=== PATIENT | male | born 1945 | race Caucasian/White ===

== ENCOUNTER 2016-07-15 00:03 | Inpatient (IN) | payer MEDICARE, OTHER ==
[~2016-07-15 00:03] MED LIST: Lidocaine 1% 20 ML MDV ONE
[2016-07-15] MEDS ORDERED: Lidocaine 1% with EPINEPHrine 1:100,000 20 ML MDV INJECT ONE ×2 (00:05→00:42)
[2016-07-15] MEDS ORDERED: Lidocaine 1% 20 ML MDV INJECT ONE (00:08)
[2016-07-15] MEDS ORDERED: Morphine 10 MG/ML Syringe ONE (00:38)
[2016-07-15] MEDS ORDERED: Lidocaine 1% with EPINEPHrine 1:100,000 20 ML MDV ONE (00:39)
[2016-07-15] MEDS ORDERED: Ondansetron 4 MG/2 ML SDV ONE (00:39)
[2016-07-15] MEDS ORDERED: Morphine 10 MG/ML Syringe IVPUSH ONE ×3 (00:40→01:23)
[2016-07-15] MEDS ORDERED: Ondansetron 4 MG/2 ML SDV IVPUSH ONE ×2 (00:43→01:23)
--- NOTE | 2016-07-15 00:47 | EDM.PDOC ---
ED HISTORY OF PRESENT ILLNESS - General Chief Complaint: Respiratory Problem Stated Complaint: . Time Seen by Provider: 07/15/16 00:05 Source of Information: Reports: Patient, EMS, Other (Prehospital records from [facility] nurse practitioner [facility]) - History of Present Illness INITIAL COMMENTS - FREE TEXT/NARRATIVE: HISTORY AND PHYSICAL: History of present illness: [] 71-year-old male with a history of long-term tobacco abuse COPD still smokes 2 L home O2 baseline also with diabetes a pacemaker on LS esophageal cancer and CHF. Patient now transferred to our emergency department because of a left- sided pneumothorax. Patient was at [facility] and the mid-level provider as well as her emergency medicine Dr. stated that chest tube placement or needle thoracostomy was not part of their practice and they were unable to do it because they were not comfortable with the procedure they were apparently not trained for. I was called by this mid-level provider [facility] to accept patient in transfer. Patient needed chest tube placement and as mentioned [facility] stated they had no available staff with the capability to do this prior to transfer. Red she denied tachypnea and tachycardia or hemodynamic instability. His is on 3 L nasal cannula the patient was 92% and his baseline is 2 L and as a cannula. Patient did not have a history of chest pain but he did have shortness of breath earlier today so he went through to the [facility] for evaluation Review of systems: As per history of present illness and below otherwise all systems reviewed and negative. Past medical history: As per history of present illness and as reviewed below otherwise noncontributory. Surgical history: As per history of present illness and as reviewed below otherwise noncontributory. Social history: No reported history of drug or alcohol abuse. Family history: As per history of present illness and as reviewed below otherwise noncontributory. Physical exam: HEENT: Atraumatic, normocephalic, pupils reactive, negative for conjunctival pallor or scleral icterus, mucous membranes moist, throat clear, neck supple, nontender, trachea midline. Lungs: Clear to auscultation on the right side, breath sounds normal on the right decreased on the left, chest nontender. Heart: S1S2, regular, negative for clicks, rubs, or JVD. Abdomen: Soft, nondistended, nontender. Negative for masses or hepatosplenomegaly. Negative for costovertebral tenderness. Pelvis: Stable nontender. Genitourinary: Deferred. Rectal: Deferred. Extremities: Atraumatic, negative for cords or calf pain. Neurovascular unremarkable. Neuro: Awake, alert, oriented. Cranial nerves grossly unremarkable. Cerebellum unremarkable. Motor and sensory unremarkable throughout. Exam nonfocal. Diagnostics: [Repeat chest x-ray on arrival with left-sided pneumothorax.] EKG normal sinus rhythm at 98 normal axis no STEMI Therapeutics: [Chest tube placement by Dr. Sunny Boo surgery trade promotion analyst. See his procedure note.] Impression: [Left pneumothorax, Hypoxia ] Plan: [Patient with pneumonia. X-ray suggests mild tension element but patient not in extremis. He is alert and communicative with no speech and no increased work of breathing. Patient with no symptoms consistent with acute coronary syndrome. Dr. Machado only present in emergency department to perform chest tube in insertion and consult regarding patient's continued admission. His discussed with Dr. Milton Parikh hospitalist trade promotion analyst is aware of history and findings and patient's extensive list of comorbidities. Dr. Parikh agrees with inpatient admission to the ICU to his service and no further workup or treatment indicated at this time Definitive disposition and diagnosis as appropriate pending reevaluation and review of above. 76 minutes critical care - Related Data Allergies/ADRs: Allergies Allergy/AdvReac Type Severity Reaction Status Date / Time No Known Allergies Allergy Verified 07/15/16 00:32 Home Meds: Home Meds Albuterol Sulfate 2.5 mg IH QID 07/15/16 [History] Apixaban [Eliquis] 2.5 mg PO Q12HR 07/15/16 [History] Carvedilol [Coreg] 12.5 mg PO BID 07/15/16 [History] Cefdinir [Omnicef] 300 mg PO BID 07/15/16 [History] Fluticasone/Salmeterol [Advair 250-50 Diskus] 1 each IH BID 07/15/16 [History] Megestrol Acetate [Megace] 400 mg PO DAILY 07/15/16 [History] Tiotropium [Spiriva HandiHaler] 18 mcg INH ONETIME 07/15/16 [History] Past Medical History HEENT History: Reports: Other (see below) Other HEENT History: hx of malignant neoplasm of esophagus, remission Cardiovascular History: Reports: Automatic implantable cardioverter defibrillators, CAD, Cardiomyopathy, Heart Failure, High cholesterol, Hypertension, Other (see below) Other Cardiovascular History: Anticoagulant therapy; diastolic dysfunction Respiratory History: Reports: COPD Other Respiratory History: hx pneumonia; respiratory failure; bronchiectasis with acute exacerbation Endocrine/Metabolic History: Reports: Diabetes, type II Hematologic History: Reports: Anticoagulation therapy Oncologic (Cancer) History: Reports: Esophageal - Past Surgical History Cardiovascular Surgical History: Reports: Other (see below) Other Cardiovascular Surgeries/Procedures: cardiac catheterization Social & Family History - Tobacco Use Smoking Status *Q: Former Smoker Used Tobacco, but Quit: Yes Month Tobacco Last Used: uknown - Recreational Drug Use Recreational Drug Use: No ED ROS GENERAL - Review of Systems Review Of Systems: See Below (History of present illness) ED EXAM, GENERAL - Physical Exam Exam: See Below (History of present illness) Course - Vital Signs Last Recorded V/S: Last Vital Signs Temp 36.8 C 07/15/16 04:00 Pulse 84 07/15/16 02:13 Resp 31 H 07/15/16 04:00 BP 139/77 07/15/16 04:00 Pulse Ox 100 07/15/16 04:00 - Orders/Labs/Meds Orders: Active Orders 24 hr Category Date Time Status Admission Status [Patient Status] [ADT] Stat ADT 07/15/16 00:42 Active Chest 1V Frontal [CR] Stat Exams 07/15/16 00:10 Taken Chest 1V Frontal [CR] Stat Exams 07/15/16 01:03 Ordered Labs: Laboratory Tests 07/15/16 07/15/16 07/15/16 Range/Units 00:09 00:17 00:30 WBC (4.0-11.0) K/uL RBC (4.50-5.90) M/uL Hgb (13.0-17.0) g/dL Hct (38.0-50.0) % MCV (80.0-98.0) fL MCH (27.0-32.0) pg MCHC (31.0-37.0) g/dL RDW Std Deviation (28.0-62.0) fl RDW Coeff of Saran (11.0-15.0) % Plt Count (150-400) K/uL MPV (7.40-12.00) fL Neut % (Auto) (48.0-80.0) % Lymph % (Auto) (16.0-40.0) % [place] % (Auto) (0.0-15.0) % Eos % (Auto) (0.0-7.0) % Baso % (Auto) (0.0-1.5) % Neut # (Auto) (1.4-5.7) K/uL Lymph # (Auto) (0.6-2.4) K/uL [place] # (Auto) (0.0-0.8) K/uL Eos # (Auto) (0.0-0.7) K/uL Baso # (Auto) (0.0-0.1) K/uL Sodium (136-146) mmol/L Potassium (3.5-5.1) mmol/L Chloride (98-110) mmol/L Carbon Dioxide (21-31) mmol/L BUN (6.0-23.0) mg/dL Creatinine (0.6-1.5) mg/dL Est Cr Clr Drug Dosing mL/min Estimated GFR (MDRD) ml/min Glucose (60-110) mg/dL POC Glucose 137 H (60-110) mg/dL Calcium (8.8-10.8) mg/dL Total Bilirubin (0.1-1.5) mg/dL AST (5-40) IU/L ALT (8-54) IU/L Alkaline Phosphatase (40-150) Troponin I < 0.10 (0.0-0.29) NG/ML Total Protein (6.0-8.0) g/dL Albumin (3.4-4.8) g/dL Globulin (2.0-3.5) g/dL Albumin/Globulin Ratio (1.3-2.8) Blood Type O POSITIVE Antibody Screen NEGATIVE 07/15/16 07/15/16 Range/Units 00:30 00:30 WBC 7.61 (4.0-11.0) K/uL RBC 4.69 (4.50-5.90) M/uL Hgb 13.1 (13.0-17.0) g/dL Hct 41.5 (38.0-50.0) % MCV 88.5 (80.0-98.0) fL MCH 27.9 (27.0-32.0) pg MCHC 31.6 (31.0-37.0) g/dL RDW Std Deviation 50.2 (28.0-62.0) fl RDW Coeff of Saran 16 H (11.0-15.0) % Plt Count 180 (150-400) K/uL MPV 9.40 (7.40-12.00) fL Neut % (Auto) 86.7 H (48.0-80.0) % Lymph % (Auto) 10.9 L (16.0-40.0) % [place] % (Auto) 1.7 (0.0-15.0) % Eos % (Auto) 0.4 (0.0-7.0) % Baso % (Auto) 0.3 (0.0-1.5) % Neut # (Auto) 6.6 H (1.4-5.7) K/uL Lymph # (Auto) 0.8 (0.6-2.4) K/uL [place] # (Auto) 0.1 (0.0-0.8) K/uL Eos # (Auto) 0.0 (0.0-0.7) K/uL Baso # (Auto) 0.0 (0.0-0.1) K/uL Sodium 142 (136-146) mmol/L Potassium 5.5 H (3.5-5.1) mmol/L Chloride 103 (98-110) mmol/L Carbon Dioxide 31 (21-31) mmol/L BUN 18 (6.0-23.0) mg/dL Creatinine 1.0 (0.6-1.5) mg/dL Est Cr Clr Drug Dosing 52.04 mL/min Estimated GFR (MDRD) > 60.0 ml/min Glucose 144 H (60-110) mg/dL POC Glucose (60-110) mg/dL Calcium 9.0 (8.8-10.8) mg/dL Total Bilirubin 0.4 (0.1-1.5) mg/dL AST 14 (5-40) IU/L ALT 9 (8-54) IU/L Alkaline Phosphatase 37 L (40-150) Troponin I (0.0-0.29) NG/ML Total Protein 7.3 (6.0-8.0) g/dL Albumin 3.9 (3.4-4.8) g/dL Globulin 3.4 (2.0-3.5) g/dL Albumin/Globulin Ratio 1.2 L (1.3-2.8) Blood Type Antibody Screen Meds: Medications Discontinued Medications Generic Name Dose Route Start Last Admin Trade Name Francisco PRN Reason Stop Dose Admin Lidocaine HCl Confirm 07/14/16 23:46 07/15/16 01:30 Xylocaine 1% Administered 07/15/16 00:08 Not Given Dose 20 ml .ROUTE .STK-MED ONE Lidocaine HCl 20 ml 07/15/16 00:08 07/15/16 01:32 Xylocaine 1% INJECT 07/15/16 00:09 Not Given ONETIME ONE Lidocaine/Epinephrine Confirm 07/15/16 00:39 07/15/16 01:32 Xylocaine 1% With Epinephrine 1:100,000 Administered 07/15/16 00:40 Not Given Dose 20 ml .ROUTE .STK-MED ONE Lidocaine/Epinephrine 20 ml 07/15/16 00:42 07/15/16 01:32 Xylocaine 1% With Epinephrine 1:100,000 INJECT 07/15/16 00:43 Not Given ONETIME ONE Lidocaine/Epinephrine 20 ml 07/15/16 00:05 07/15/16 00:47 Xylocaine 1% With Epinephrine 1:100,000 INJECT 07/15/16 00:06 20 ml ONETIME ONE Administration Morphine Sulfate Confirm 07/15/16 00:38 07/15/16 01:31 Morphine Administered 07/15/16 00:39 Not Given Dose 10 mg .ROUTE .STK-MED ONE Morphine Sulfate 10 mg 07/15/16 00:43 07/15/16 01:32 Morphine IVPUSH 07/15/16 00:44 Not Given ONETIME ONE Morphine Sulfate 3 mg 07/15/16 01:23 07/15/16 01:31 Morphine IVPUSH 07/15/16 01:24 Not Given ONETIME ONE Morphine Sulfate 3 mg 07/15/16 00:40 07/15/16 00:47 Morphine IVPUSH 07/15/16 00:41 3 mg ONETIME ONE Administration Ondansetron HCl Confirm 07/15/16 00:39 07/15/16 01:33 Zofran Administered 07/15/16 00:40 Not Given Dose 4 mg .ROUTE .STK-MED ONE Ondansetron HCl 4 mg 07/15/16 00:43 07/15/16 00:40 Zofran IVPUSH 07/15/16 00:44 4 mg ONETIME ONE Administration Ondansetron HCl 4 mg 07/15/16 01:23 07/15/16 01:32 Zofran IVPUSH 07/15/16 01:24 Not Given ONETIME ONE Departure - Departure Time of Disposition: 00:46 Disposition: Admitted As Inpatient 66 Condition: fair Clinical Impression: Pneumothorax, left, Hypoxia, S/P chest tube placement - My Orders Last 24 Hours: My Active Orders 07/15/16 00:10 Chest 1V Frontal [CR] Stat 07/15/16 00:42 Admission Status [Patient Status] [ADT] Stat 07/15/16 01:03 Chest 1V Frontal [CR] Stat - Assessment/Plan Last 24 Hours: My Active Orders 07/15/16 00:10 Chest 1V Frontal [CR] Stat 07/15/16 00:42 Admission Status [Patient Status] [ADT] Stat 07/15/16 01:03 Chest 1V Frontal [CR] Stat
[2016-07-15 01:18] LABS: CHLORIDE,CL 103 mmol/L (98-110); SODIUM,NA 142 mmol/L (136-146)
--- NOTE | 2016-07-15 01:30 | PCM.SN ---
- Free Text/Narrative Note: consult note dictated; procedure note dictated; 24FR chest tube placed in L; postop cxr, lung is completely up, no air leak; pt will get a 1v cxr qam; will follow pt with you; hold blood thinner X 36 hr.; never clamp chest tube under any conditions
--- NOTE | 2016-07-15 03:52 | OR ---
SURGEON: Sunny Boo MD DATE OF PROCEDURE: 07/15/2016 PREOPERATIVE DIAGNOSIS: Tension left pneumothorax. POSTOPERATIVE DIAGNOSIS: Tension left pneumothorax. PROCEDURE PERFORMED: Chest tube placement. PROCEDURE IN DETAIL: Risks and benefits were discussed with the patient. Time-out was being called. The patient's family consented for the procedure and procedure then started. Procedure was done in the emergency room [facility] [place]. The left chest was prepped and draped in a sterile fashion and 3 mg of IV morphine was given to the patient. The patient was placed under continuous monitoring and after assessment of appropriate landmark, a space on the fourth intercostal space in the mid axilla line was used and local anesthetic infiltrated with a skin incision right on top of the rib. Using a hemostat, the pleural cavity was inserted. Using surgeon's finger to dislodge any adherence, a 24-[place] chest tube was inserted and had a big gush of air cs tension pneumothorax and the chest tube was anchored to the skin marker pen and chest x-ray was pending. The patient tolerated the procedure well. Dr. Boo was present throughout the whole procedure. Chest x-ray was performed and there was no air leak. MARGARITO / BELINDA /[id number] MTDGarima
--- NOTE | 2016-07-15 03:58 | PCM.HP ---
H&P History of Present Illness - History of Present Illness Initial Comments - Free Text/Narative: 71 yo male with pmh of CHF, and COPD who has had mulltiple admissions in [facility] recently for pneumonia. He takes Elaquis but is uncertain of the reason for anticoagulation. He presented to [facility] ER with complaints of shortness of breath and low O2 sats on his home meter. He was discovered to have a pneumonthorax for which he was transfered to [facility]. Dr. Boo was consulted here and placed a chest tube. - Related Data Allergies/Adverse Reactions: Allergies Allergy/AdvReac Type Severity Reaction Status Date / Time No Known Allergies Allergy Verified 07/15/16 00:32 Home Medications: Home Meds Albuterol Sulfate 2.5 mg IH QID 07/15/16 [History] Apixaban [Eliquis] 2.5 mg PO Q12HR 07/15/16 [History] Carvedilol [Coreg] 12.5 mg PO BID 07/15/16 [History] Cefdinir [Omnicef] 300 mg PO BID 07/15/16 [History] Fluticasone/Salmeterol [Advair 250-50 Diskus] 1 each IH BID 07/15/16 [History] Megestrol Acetate [Megace] 400 mg PO DAILY 07/15/16 [History] Sotalol HCl [Sotalol] 1 tab PO BID 07/15/16 [History] Tiotropium [Spiriva HandiHaler] 18 mcg INH ONETIME 07/15/16 [History] Past Medical History HEENT History: Reports: Other (see below) Other HEENT History: hx of malignant neoplasm of esophagus, remission Cardiovascular History: Reports: Automatic implantable cardioverter defibrillators, CAD, Cardiomyopathy, Heart Failure, High cholesterol, Hypertension, Other (see below) Other Cardiovascular History: Anticoagulant therapy; diastolic dysfunction Respiratory History: Reports: COPD Other Respiratory History: hx pneumonia; respiratory failure; bronchiectasis with acute exacerbation Endocrine/Metabolic History: Reports: Diabetes, type II Hematologic History: Reports: Anticoagulation therapy Oncologic (Cancer) History: Reports: Esophageal - Past Surgical History Cardiovascular Surgical History: Reports: Other (see below) Other Cardiovascular Surgeries/Procedures: cardiac catheterization Social & Family History - Tobacco Use Smoking Status *Q: Former Smoker Used Tobacco, but Quit: Yes Month Tobacco Last Used: uknown - Recreational Drug Use Recreational Drug Use: No H&P Review of Systems - Review of Systems: Review Of Systems: See Below General: Reports: no symptoms HEENT: Reports: no symptoms Pulmonary: Reports: No Symptoms Cardiovascular: Reports: no symptoms Gastrointestinal: Reports: No symptoms Genitourinary: Reports: no symptoms Musculoskeletal: Reports: no symptoms Skin: Reports: no symptoms Psychiatric: Reports: no symptoms Neurological: Reports: No Symptoms Hematologic/Lymphatic: Reports: no symptoms Immunologic: Reports: no symptoms Exam - Exam Exam: See Below - Vital Signs Vital Signs: Last Vital Signs Temp 36.4 C 07/15/16 02:13 Pulse 84 07/15/16 02:13 Resp 22 H 07/15/16 02:13 BP 140/90 07/15/16 02:13 Pulse Ox 99 07/15/16 02:13 Weight: 49.2 kg - Exam General: cooperative. No: mild distress Neck: supple, trachea midline. No: JVD Lungs: Clear to auscultation, Normal respiratory effort Cardiovascular: regular rate, regular rhythm Abdomen: Normal Bowel Sounds, Soft Extremities: normal inspection. No: edema Skin: warm, dry, intact - Patient Data Result Diagrams: 07/16/16 04:55 07/16/16 04:55 *Q Meaningful Use (ADM) - VTE *Q VTE Criteria *Q: - Stroke *Q Stroke Criteria *Q: - AMI *Q AMI Criteria *Q: Problem List Initiated/Reviewed/Updated: Yes Orders Last 24hrs: Active Orders 24 hr Category Date Time Status Chest Tube Management [RC] Q12H Care 07/15/16 01:27 Active CXR [Chest 1V Frontal] [CR] AM Exams 07/15/16 05:11 Ordered CXR [Chest 1V Frontal] [CR] AM Exams 07/16/16 05:11 Ordered CXR [Chest 1V Frontal] [CR] AM Exams 07/17/16 05:11 Ordered CXR [Chest 1V Frontal] [CR] AM Exams 07/18/16 05:11 Ordered Assessment/Plan Comment:: 71 yo male admitted with pneumothorax. Dr. Boo has placed chest tube. Will repeat CXR in am.
[2016-07-15] MEDS ORDERED: Morphine 2 MG/ML Syringe IVPUSH PRN (06:02)
[2016-07-15 06:08] LABS: CHLORIDE,CL 101 mmol/L (98-110); SODIUM,NA 143 mmol/L (136-146)
[2016-07-15] MEDS ORDERED: 50% Dextrose in Water 50 ML Syringe IVPUSH STA (06:16)
[2016-07-15] MEDS ORDERED: Insulin Regular, Human 100 Units/ML 10 ML Vial IVPUSH STA (06:17)
--- NOTE | 2016-07-15 06:19 | CONS ---
DATE OF CONSULTATION: 07/15/2016 DATE OF : 1945 PRIMARY CARE PHYSICIAN: None PCP REASON FOR CONSULTATION: Consult for left side pneumothorax with tension component. CONSULTANTS: Dr. Diaz Dominguez. HISTORY OF PRESENT ILLNESS: The patient is a 71-year-old gentleman with esophageal cancer, possibly metastatic to the lung and has congestive heart failure with BNP of 3300 and on Eliquis and 81 mg aspirin, noted to have increasing difficulty in breathing and dyspnea on exertion and seen in outside hospital and workup includes a chest x- ray that shows moderate pneumothorax per Radiology on the left side. The patient is transferred to our emergency room for further management. When the patient came over here, the patient hardly able to carry on a sentence without taking a break and the patient remarked that the breathing is much more difficult today compared to yesterday 36 hours ago, but is getting here and denied syncope, denied chest pain. Of note, the patient has continued to be a current everyday smoker. PAST MEDICAL HISTORY: Denied diabetes, SD, or CVA. The patient has hypertension. PAST SURGICAL HISTORY: Central line placement to the right for chemotherapy and defibrillator on the left. ALLERGY: Please refer to nursing for details. MEDICATION: Please refer to nursing for details. Of note, the patient is on Eliquis and ASA 81 mg. REVIEW OF SYSTEMS: Same as history of present illness. FAMILY HISTORY: Noncontributory. PHYSICAL EXAMINATION: GENERAL: A very anxious, skin on bone, cachectic appearance, elderly, in moderate distress. HEENT: Normocephalic, atraumatic. Sclerae anicteric. LUNGS: Clear on the right side and muffled and diminished on the left side. Trachea is in the midline. There is no crepitus. ABDOMEN: Soft. DIAGNOSTICS: Chest x-ray shows moderate-sized left-sided pneumothorax with trachea deviation, Radiology read as a mild component of tension pneumothorax. The patient got another chest x-ray when he came here, the trachea deviation is much more pronounced and at the same time, the patient can hardly carry on a sentence without taking a breath. IMPRESSION: Likely tension pneumothorax requiring immediate placement of chest tube on the left side. Risks and benefits discussed with the patient in situation like this, Eliquis and aspirin 81 mg and with the patient's other comorbidity, congestive heart failure, the patient probably would benefit having a pigtail placed by the Radiology and, however, right now it is 1:15 in the morning. Doubt any Radiology is available. The patient's risks and benefits discussed with the family member regarding placement of chest tube, bleeding, infection, and because the patient on a lot of anticoagulation if the complication involved along, the patient may result in and the patient's family understands that and agree and proceeded with plan. MARGARITO / BELINDA /[id number] Cc: KIRK Lora
[2016-07-15] MEDS: Insulin Aspart 100 Units/ML 3 ML Pen SUBCUT SCH ×3 (06:43→17:31)
[2016-07-15] MEDS ORDERED: Sotalol 80 MG Tab PO ONE ×2 (09:00→21:00)
[2016-07-15 09:11] LABS: CHLORIDE,CL 103 mmol/L (98-110); SODIUM,NA 144 mmol/L (136-146)
[2016-07-15] MEDS: Sotalol 80 MG Tab PO SCH ×2 (09:20→20:25)
[2016-07-15] MEDS: Carvedilol 12.5 MG Tab PO SCH ×2 (09:20→20:23)
--- NOTE | 2016-07-15 09:47 | CR ---
EXAMINATION: Portable chest radiograph. HISTORY: Left pneumothorax. FINDINGS: The trachea is midline. The heart is normal in size. Chronic interstitial changes are noted bilatera lly. The previously demonstrated left-sided pneumothorax is not appreciated with a left-sided chest tube noted. Tubular shaped opacities are noted within the lung bases bilaterally. There is a left-si ded AICD. There is a right-sided Foeadq-l-Misp. Osseous structures appear unremarkable. IMPRESSION: 1. No residual left-sided pneumothorax with a chest tube in place. 2. Tubular opacities within the lung bases bilaterally, correlate clinically for a ABPA.
--- NOTE | 2016-07-15 14:26 | PCM.PN ---
- General Info Date of Service: 07/15/16 Subjective Update: Patient doing much better today. CXR was done which shows chest tube is in place. Vitals are stable. No shortness of breath, pleurisy or chest pain. Tolerating PO intake and producing urine. Functional Status: Reports: pain controlled, tolerating diet - Review of Systems General: Reports: Weakness HEENT: Reports: no symptoms Pulmonary: Reports: no symptoms. Denies: shortness of breath, pleuritic chest pain Cardiovascular: Reports: No Symptoms. Denies: Chest Pain, Palpitations Gastrointestinal: Reports: No symptoms Genitourinary: Reports: no symptoms Musculoskeletal: Reports: no symptoms Skin: Reports: no symptoms Neurological: Reports: No Symptoms Psychiatric: Reports: no symptoms - Patient Data Vitals - most recent: Last Vital Signs Temp 36.8 C 07/15/16 04:00 Pulse 72 07/15/16 09:20 Resp 27 H 07/15/16 11:00 BP 114/63 07/15/16 11:00 Pulse Ox 98 07/15/16 11:00 Weight - most recent: 49.2 kg I&O - last 24 hours: Intake & Output 07/14/16 07/15/16 07/15/16 22:59 06:59 14:59 Intake Total 0 Output Total 150 Balance -150 Lab Results last 24 hrs: Laboratory Results - last 24 hr 07/15/16 07/15/16 07/15/16 Range/Units 05:30 05:30 06:25 WBC 6.61 (4.0-11.0) K/uL RBC 4.67 (4.50-5.90) M/uL Hgb 12.7 L (13.0-17.0) g/dL Hct 41.4 (38.0-50.0) % MCV 88.7 (80.0-98.0) fL MCH 27.2 (27.0-32.0) pg MCHC 30.7 L (31.0-37.0) g/dL RDW Std Deviation 51.2 (28.0-62.0) fl RDW Coeff of Saran 16 H (11.0-15.0) % Plt Count 177 (150-400) K/uL MPV 9.50 (7.40-12.00) fL Neut % (Auto) 88.1 H (48.0-80.0) % Lymph % (Auto) 9.1 L (16.0-40.0) % [place] % (Auto) 2.6 (0.0-15.0) % Eos % (Auto) 0.0 (0.0-7.0) % Baso % (Auto) 0.2 (0.0-1.5) % Neut # (Auto) 5.8 H (1.4-5.7) K/uL Lymph # (Auto) 0.6 (0.6-2.4) K/uL [place] # (Auto) 0.2 (0.0-0.8) K/uL Eos # (Auto) 0.0 (0.0-0.7) K/uL Baso # (Auto) 0.0 (0.0-0.1) K/uL Nucleated RBC % 0.0 /100WBC Nucleated RBCs # 0 K/uL Sodium 143 (136-146) mmol/L Potassium 5.5 H (3.5-5.1) mmol/L Chloride 101 (98-110) mmol/L Carbon Dioxide 33 H (21-31) mmol/L BUN 21 (6.0-23.0) mg/dL Creatinine 1.0 (0.6-1.5) mg/dL Est Cr Clr Drug Dosing 47.15 mL/min Estimated GFR (MDRD) > 60.0 ml/min Glucose 149 H (60-110) mg/dL POC Glucose 142 H (60-110) mg/dL Calcium 9.2 (8.8-10.8) mg/dL Troponin I (0.0-0.29) NG/ML 07/15/16 07/15/16 Range/Units 08:35 08:35 WBC (4.0-11.0) K/uL RBC (4.50-5.90) M/uL Hgb (13.0-17.0) g/dL Hct (38.0-50.0) % MCV (80.0-98.0) fL MCH (27.0-32.0) pg MCHC (31.0-37.0) g/dL RDW Std Deviation (28.0-62.0) fl RDW Coeff of [place] (11.0-15.0) % Plt Count (150-400) K/uL MPV (7.40-12.00) fL Neut % (Auto) (48.0-80.0) % Lymph % (Auto) (16.0-40.0) % [place] % (Auto) (0.0-15.0) % Eos % (Auto) (0.0-7.0) % Baso % (Auto) (0.0-1.5) % Neut # (Auto) (1.4-5.7) K/uL Lymph # (Auto) (0.6-2.4) K/uL [place] # (Auto) (0.0-0.8) K/uL Eos # (Auto) (0.0-0.7) K/uL Baso # (Auto) (0.0-0.1) K/uL Nucleated RBC % /100WBC Nucleated RBCs # K/uL Sodium 144 (136-146) mmol/L Potassium 5.1 (3.5-5.1) mmol/L Chloride 103 (98-110) mmol/L Carbon Dioxide 32 H (21-31) mmol/L BUN 23 (6.0-23.0) mg/dL Creatinine 1.1 (0.6-1.5) mg/dL Est Cr Clr Drug Dosing 42.86 mL/min Estimated GFR (MDRD) > 60.0 ml/min Glucose 182 H (60-110) mg/dL POC Glucose (60-110) mg/dL Calcium 9.0 (8.8-10.8) mg/dL Troponin I < 0.10 (0.0-0.29) NG/ML Med Orders - Current: Current Medications Carvedilol (Coreg) 12.5 mg PO BID [facility] Last Admin: 07/15/16 09:20 Dose: 12.5 mg Insulin Aspart (Novolog) 0 unit SUBCUT TIDAC [facility] PRN Reason: Protocol Last Admin: 07/15/16 13:42 Dose: Not Given Morphine Sulfate (Morphine) 2 mg IVPUSH Q2H PRN PRN Reason: Pain (severe 7-10) Oxycodone HCl (Oxycodone) 5 mg PO Q4H PRN PRN Reason: Pain Sotalol HCl (Betapace) 120 mg PO BID [facility] Last Admin: 07/15/16 09:20 Dose: 120 mg Discontinued Medications Dextrose/Water (Dextrose 50% In Water) 50 ml IVPUSH ONETIME STA Stop: 07/15/16 06:17 Last Admin: 07/15/16 06:35 Dose: 50 ml Insulin Human Regular (Novolin R) 10 unit IVPUSH ONETIME STA PRN Reason: Protocol Stop: 07/15/16 06:18 Last Admin: 07/15/16 06:33 Dose: 10 units Lidocaine HCl (Xylocaine 1%) Confirm Administered Dose 20 ml .ROUTE .STK-MED ONE Stop: 07/15/16 00:08 Last Admin: 07/15/16 01:30 Dose: Not Given Lidocaine HCl (Xylocaine 1%) 20 ml INJECT ONETIME ONE Stop: 07/15/16 00:09 Last Admin: 07/15/16 01:32 Dose: Not Given Lidocaine/Epinephrine (Xylocaine 1% With Epinephrine 1:100,000) Confirm Administered Dose 20 ml .ROUTE .STK-MED ONE Stop: 07/15/16 00:40 Last Admin: 07/15/16 01:32 Dose: Not Given Lidocaine/Epinephrine (Xylocaine 1% With Epinephrine 1:100,000) 20 ml INJECT ONETIME ONE Stop: 07/15/16 00:43 Last Admin: 07/15/16 01:32 Dose: Not Given Lidocaine/Epinephrine (Xylocaine 1% With Epinephrine 1:100,000) 20 ml INJECT ONETIME ONE Stop: 07/15/16 00:06 Last Admin: 07/15/16 00:47 Dose: 20 ml Morphine Sulfate (Morphine) Confirm Administered Dose 10 mg .ROUTE .STK-MED ONE Stop: 07/15/16 00:39 Last Admin: 07/15/16 01:31 Dose: Not Given Morphine Sulfate (Morphine) 10 mg IVPUSH ONETIME ONE Stop: 07/15/16 00:44 Last Admin: 07/15/16 01:32 Dose: Not Given Morphine Sulfate (Morphine) 3 mg IVPUSH ONETIME ONE Stop: 07/15/16 01:24 Last Admin: 07/15/16 01:31 Dose: Not Given Morphine Sulfate (Morphine) 3 mg IVPUSH ONETIME ONE Stop: 07/15/16 00:41 Last Admin: 07/15/16 00:47 Dose: 3 mg Ondansetron HCl (Zofran) Confirm Administered Dose 4 mg .ROUTE .STK-MED ONE Stop: 07/15/16 00:40 Last Admin: 07/15/16 01:33 Dose: Not Given Ondansetron HCl (Zofran) 4 mg IVPUSH ONETIME ONE Stop: 07/15/16 00:44 Last Admin: 07/15/16 00:40 Dose: 4 mg Ondansetron HCl (Zofran) 4 mg IVPUSH ONETIME ONE Stop: 07/15/16 01:24 Last Admin: 07/15/16 01:32 Dose: Not Given - Exam General: alert, oriented, no acute distress Neck: supple, no JVD Lungs: Normal respiratory effort, Decreased breath sounds, Other (good aeration) Cardiovascular: Regular Rate, Regular Rhythm Extremities: no edema Skin: warm, dry, intact Neurological: no new focal deficit - Problem List Review Problem List Initiated/Reviewed/Updated: Yes - My Orders Last 24 Hours: My Active Orders 07/15/16 13:12 Transfer Patient (Change bed) [ADT] Routine 07/15/16 13:13 Telemetry Monitoring [Cardiac Monitoring] [RC] . DIRECTED - Plan Plan:: 71 yo male admitted with Left Tension pneumothorax s/p chest tube. Chest Tube was placed by Dr. Boo from general Surgery. Patient improved significantly today. Breath sounds equal bilaterally, vitals stable, denies sob or chest pain. Repeat CXR was done today which shows chest tube in place. plan: 1. Patient was seen by Dr. Boo today and we will continue management as per his recommendations: -hold Eliquis and Plavix to decrease risk for potential bleeding into thoracic cavity -repeat CXR in AM -continue 20cm suction for at least 2 days -then water seal X 12 hr -then repeat cxr and pull tube if WNL -appreciate the recs 2. as per orders
--- NOTE | 2016-07-15 14:30 | PCM.SURGPN ---
- General Info Date of Service: 07/15/16 Functional Status: Reports: pain controlled - Review of Systems General: Reports: No Symptoms Gastrointestinal: Reports: No symptoms (breathing is much better) - Patient Data Vitals - most recent: Last Vital Signs Temp 98.2 F 07/15/16 04:00 Pulse 72 07/15/16 09:20 Resp 27 H 07/15/16 11:00 BP 114/63 07/15/16 11:00 Pulse Ox 98 07/15/16 11:00 Weight - most recent: 108 lb 7.479 oz I&O - last 24 hours: Intake & Output 07/14/16 07/15/16 07/15/16 22:59 06:59 14:59 Intake Total 0 Output Total 150 Balance -150 Lab Results last 24 hrs: Laboratory Results - last 24 hr 07/15/16 07/15/16 07/15/16 Range/Units 05:30 05:30 06:25 WBC 6.61 (4.0-11.0) K/uL RBC 4.67 (4.50-5.90) M/uL Hgb 12.7 L (13.0-17.0) g/dL Hct 41.4 (38.0-50.0) % MCV 88.7 (80.0-98.0) fL MCH 27.2 (27.0-32.0) pg MCHC 30.7 L (31.0-37.0) g/dL RDW Std Deviation 51.2 (28.0-62.0) fl RDW Coeff of Saran 16 H (11.0-15.0) % Plt Count 177 (150-400) K/uL MPV 9.50 (7.40-12.00) fL Neut % (Auto) 88.1 H (48.0-80.0) % Lymph % (Auto) 9.1 L (16.0-40.0) % [place] % (Auto) 2.6 (0.0-15.0) % Eos % (Auto) 0.0 (0.0-7.0) % Baso % (Auto) 0.2 (0.0-1.5) % Neut # (Auto) 5.8 H (1.4-5.7) K/uL Lymph # (Auto) 0.6 (0.6-2.4) K/uL [place] # (Auto) 0.2 (0.0-0.8) K/uL Eos # (Auto) 0.0 (0.0-0.7) K/uL Baso # (Auto) 0.0 (0.0-0.1) K/uL Nucleated RBC % 0.0 /100WBC Nucleated RBCs # 0 K/uL Sodium 143 (136-146) mmol/L Potassium 5.5 H (3.5-5.1) mmol/L Chloride 101 (98-110) mmol/L Carbon Dioxide 33 H (21-31) mmol/L BUN 21 (6.0-23.0) mg/dL Creatinine 1.0 (0.6-1.5) mg/dL Est Cr Clr Drug Dosing 47.15 mL/min Estimated GFR (MDRD) > 60.0 ml/min Glucose 149 H (60-110) mg/dL POC Glucose 142 H (60-110) mg/dL Calcium 9.2 (8.8-10.8) mg/dL Troponin I (0.0-0.29) NG/ML 07/15/16 07/15/16 Range/Units 08:35 08:35 WBC (4.0-11.0) K/uL RBC (4.50-5.90) M/uL Hgb (13.0-17.0) g/dL Hct (38.0-50.0) % MCV (80.0-98.0) fL MCH (27.0-32.0) pg MCHC (31.0-37.0) g/dL RDW Std Deviation (28.0-62.0) fl RDW Coeff of [place] (11.0-15.0) % Plt Count (150-400) K/uL MPV (7.40-12.00) fL Neut % (Auto) (48.0-80.0) % Lymph % (Auto) (16.0-40.0) % [place] % (Auto) (0.0-15.0) % Eos % (Auto) (0.0-7.0) % Baso % (Auto) (0.0-1.5) % Neut # (Auto) (1.4-5.7) K/uL Lymph # (Auto) (0.6-2.4) K/uL [place] # (Auto) (0.0-0.8) K/uL Eos # (Auto) (0.0-0.7) K/uL Baso # (Auto) (0.0-0.1) K/uL Nucleated RBC % /100WBC Nucleated RBCs # K/uL Sodium 144 (136-146) mmol/L Potassium 5.1 (3.5-5.1) mmol/L Chloride 103 (98-110) mmol/L Carbon Dioxide 32 H (21-31) mmol/L BUN 23 (6.0-23.0) mg/dL Creatinine 1.1 (0.6-1.5) mg/dL Est Cr Clr Drug Dosing 42.86 mL/min Estimated GFR (MDRD) > 60.0 ml/min Glucose 182 H (60-110) mg/dL POC Glucose (60-110) mg/dL Calcium 9.0 (8.8-10.8) mg/dL Troponin I < 0.10 (0.0-0.29) NG/ML Med Orders - Current: Current Medications Carvedilol (Coreg) 12.5 mg PO BID [facility] Last Admin: 07/15/16 09:20 Dose: 12.5 mg Insulin Aspart (Novolog) 0 unit SUBCUT TIDAC [facility] PRN Reason: Protocol Last Admin: 07/15/16 13:42 Dose: Not Given Morphine Sulfate (Morphine) 2 mg IVPUSH Q2H PRN PRN Reason: Pain (severe 7-10) Oxycodone HCl (Oxycodone) 5 mg PO Q4H PRN PRN Reason: Pain Sotalol HCl (Betapace) 120 mg PO BID [facility] Last Admin: 07/15/16 09:20 Dose: 120 mg Discontinued Medications Dextrose/Water (Dextrose 50% In Water) 50 ml IVPUSH ONETIME STA Stop: 07/15/16 06:17 Last Admin: 07/15/16 06:35 Dose: 50 ml Insulin Human Regular (Novolin R) 10 unit IVPUSH ONETIME STA PRN Reason: Protocol Stop: 07/15/16 06:18 Last Admin: 07/15/16 06:33 Dose: 10 units Lidocaine HCl (Xylocaine 1%) Confirm Administered Dose 20 ml .ROUTE .STK-MED ONE Stop: 07/15/16 00:08 Last Admin: 07/15/16 01:30 Dose: Not Given Lidocaine HCl (Xylocaine 1%) 20 ml INJECT ONETIME ONE Stop: 07/15/16 00:09 Last Admin: 07/15/16 01:32 Dose: Not Given Lidocaine/Epinephrine (Xylocaine 1% With Epinephrine 1:100,000) Confirm Administered Dose 20 ml .ROUTE .STK-MED ONE Stop: 07/15/16 00:40 Last Admin: 07/15/16 01:32 Dose: Not Given Lidocaine/Epinephrine (Xylocaine 1% With Epinephrine 1:100,000) 20 ml INJECT ONETIME ONE Stop: 07/15/16 00:43 Last Admin: 07/15/16 01:32 Dose: Not Given Lidocaine/Epinephrine (Xylocaine 1% With Epinephrine 1:100,000) 20 ml INJECT ONETIME ONE Stop: 07/15/16 00:06 Last Admin: 07/15/16 00:47 Dose: 20 ml Morphine Sulfate (Morphine) Confirm Administered Dose 10 mg .ROUTE .STK-MED ONE Stop: 07/15/16 00:39 Last Admin: 07/15/16 01:31 Dose: Not Given Morphine Sulfate (Morphine) 10 mg IVPUSH ONETIME ONE Stop: 07/15/16 00:44 Last Admin: 07/15/16 01:32 Dose: Not Given Morphine Sulfate (Morphine) 3 mg IVPUSH ONETIME ONE Stop: 07/15/16 01:24 Last Admin: 07/15/16 01:31 Dose: Not Given Morphine Sulfate (Morphine) 3 mg IVPUSH ONETIME ONE Stop: 07/15/16 00:41 Last Admin: 07/15/16 00:47 Dose: 3 mg Ondansetron HCl (Zofran) Confirm Administered Dose 4 mg .ROUTE .STK-MED ONE Stop: 07/15/16 00:40 Last Admin: 07/15/16 01:33 Dose: Not Given Ondansetron HCl (Zofran) 4 mg IVPUSH ONETIME ONE Stop: 07/15/16 00:44 Last Admin: 07/15/16 00:40 Dose: 4 mg Ondansetron HCl (Zofran) 4 mg IVPUSH ONETIME ONE Stop: 07/15/16 01:24 Last Admin: 07/15/16 01:32 Dose: Not Given - Exam General: alert, oriented Cardiovascular: Regular Rate (breath sound B; trachea midline, no cutaneous crepitus; drsg cdi; no airleak on chest tube; cxr no ptx) - Problem List Review Problem List Initiated/Reviewed/Updated: Yes - My Orders Last 24 Hours: Active Orders 24 hr Category Date Time Status Transfer Patient (Change bed) [ADT] Routine ADT 07/15/16 13:12 Ordered Blood Glucose Check, Bedside [RC] TIDAC Care 07/15/16 06:00 Active Chest Tube Management [RC] Q12H Care 07/15/16 01:27 Active Communication Order [RC] ROUTINE Care 07/15/16 06:01 Active Oxygen Therapy Adult [Oxygen Therapy] [RC] ASDIRECTED Care 07/15/16 03:30 Active Telemetry Monitoring [Cardiac Monitoring] [RC] . Care 07/15/16 13:13 Active DIRECTED ADA Diabetic [[place] [employer] Diet] [DIET Diet 07/15/16 Breakfast Active ] CXR [Chest 1V Frontal] [CR] AM Exams 07/16/16 05:11 Ordered CXR [Chest 1V Frontal] [CR] AM Exams 07/17/16 05:11 Ordered CXR [Chest 1V Frontal] [CR] AM Exams 07/18/16 05:11 Ordered Carvedilol [Coreg] Med 07/15/16 09:00 Active 12.5 mg PO BID Insulin Aspart [NovoLOG] Med 07/15/16 07:30 Active See Protocol SUBCUT TIDAC Morphine Med 07/15/16 06:02 Active 2 mg IVPUSH Q2H PRN Sotalol [Betapace] Med 07/15/16 09:00 Active 120 mg PO BID oxyCODONE Med 07/15/16 06:01 Active 5 mg PO Q4H PRN Medication Orders Carvedilol (Coreg) 12.5 mg PO BID [facility] Last Admin: 07/15/16 09:20 Dose: 12.5 mg Insulin Aspart (Novolog) 0 unit SUBCUT TIDAC [facility] PRN Reason: Protocol Last Admin: 07/15/16 13:42 Dose: Admin: 07/15/16 06:43 Dose: Not Given Morphine Sulfate (Morphine) 2 mg IVPUSH Q2H PRN PRN Reason: Pain (severe 7-10) Oxycodone HCl (Oxycodone) 5 mg PO Q4H PRN PRN Reason: Pain Sotalol HCl (Betapace) 120 mg PO BID [facility] Last Admin: 07/15/16 09:20 Dose: 120 mg - Assessment Assessment (Free Text/Narrative):: doing well from surg standpoing, would continue 20cm suction for at least 2 days ; then water seal X 12 hr, then cxr, then pull tube if no ptx; then possible dc home; for the time being; cxr qam; - Plan Plan (Free Text/Narrative):: doing well from surg standpoing, would continue 20cm suction for at least 2 days ; then water seal X 12 hr, then cxr, then pull tube if no ptx; then possible dc home; for the time being; cxr qam;
[2016-07-16 05:45] LABS: CHLORIDE,CL 99 mmol/L (98-110); SODIUM,NA 141 mmol/L (136-146)
[2016-07-16] MEDS: Insulin Aspart 100 Units/ML 3 ML Pen SUBCUT SCH ×3 (07:13→17:31)
[2016-07-16] MEDS: Sotalol 80 MG Tab PO SCH ×2 (08:23→20:41)
[2016-07-16] MEDS: Carvedilol 12.5 MG Tab PO SCH ×2 (08:23→20:41)
--- NOTE | 2016-07-16 08:43 | CR ---
EXAMINATION: Portable chest radiograph. HISTORY: Left pneumothorax. FINDINGS: The trachea is midline. The cardiomediastinal silhouette is within normal limits. No pulmonary infil trates, effusions or pneumothorax. There is a left-sided ICD. A right-sided portacatheter is noted. There is a chest tube within the left hemithorax. Chronic interstitial prominence. Osseous structures appear unremarkable. IMPRESSION: No pneumothorax noted within left-sided chest tube in place.
[2016-07-16] MEDS ORDERED: Sotalol 80 MG Tab PO ONE ×2 (09:00→21:00)
[2016-07-16] MEDS: Fluticasone/Salmeterol 250-50 MCG Inhalation Powder 14/Diskus INH SCH ×2 (11:08→20:06)
[2016-07-16] MEDS: Albuterol 0.083% 2.5 MG/3 ML Neb Soln INH SCH ×3 (11:08→23:38)
[2016-07-16] MEDS: Tiotropium Inhaler 18 MCG Inhalation Powder Cap Kit of 5 INH SCH (11:08)
--- NOTE | 2016-07-16 12:03 | CR ---
EXAM DATE: 07/15/16 PATIENT'S AGE: 71 Patient: JYOTI ONEAL Facility: [place], [place] Site . Site : 1945 Study: XRay Chest [id number] 12:14:32 AM Ordering Physician: Alberto Perales Final Report: INDICATIONS: Shortness of breath. TECHNIQUE: Chest 1 view. COMPARISON: None available. FINDINGS: Intracardiac device and right-sided Port-A-Cath appear appropriately positioned. There is a moderate-sized left pneumothorax. Ill-defined opacities at the right lung base. Aortic atherosclerosis. Cardiac silhouette is within normal limits. Upper abdomen and osseous structures show no acute abnormality. IMPRESSION: Moderate size left pneumothorax. Opacities at the right lung base, of uncertain significance. Findings could be related to pneumonia in the appropriate clinical setting. Metastasis could also produce this appearance. No comparison study available. Discussed with Dr. Dominguez at the time of dictation. Dictated by Osman Pascual MD @ 07/15/2016 12:45:46 AM Dictated by: Osman Pascual MD @ 07/15/2016 00:45:59 (Electronic Signature) Report Signed by Proxy. [facility]
--- NOTE | 2016-07-16 12:10 | CR ---
EXAM DATE: 07/15/16 PATIENT'S AGE: 71 Patient: JYOTI ONEAL Facility: [place], [place] Site . Site : 1945 Study: XRay Chest [id number] 1:07:28 AM Ordering Physician: Alberto Perales Final Report: INDICATION: Chest tube insertion TECHNIQUE: Chest 1 view. 1:03 a.m. COMPARISON: 12:10 a.m. FINDINGS: Cardiovascular and mediastinum: Heart size and vasculature are normal in caliber and appearance. Mediastinum is within normal limits. A left-sided transvenous pacer device. Lungs and pleural space: Stable right lower lobe airspace opacities. No sign of pleural effusion. No pneumothorax. Left chest tube in appropriate position. Bones and soft tissues: No significant findings. IMPRESSION: Left-sided chest tube in appropriate position, with no sizable pneumothorax demonstrated. Stable right lower lobe airspace opacities. Dictated by Arik Breaux MD @ 07/15/2016 1:33:25 AM Dictated by: Arik Breaux MD @ 07/15/2016 01:33:34 (Electronic Signature) Report Signed by Proxy. [facility]
--- NOTE | 2016-07-16 13:09 | PCM.SURGPN ---
- General Info Date of Service: 07/16/16 Functional Status: Reports: pain controlled (no sob) - Review of Systems General: Reports: No Symptoms - Patient Data Vitals - most recent: Last Vital Signs Temp 97.8 F 07/16/16 12:00 Pulse 75 07/16/16 12:00 Resp 22 H 07/16/16 12:00 BP 184/90 H 07/16/16 12:00 Pulse Ox 94 L 07/16/16 12:00 Weight - most recent: 108 lb 7.479 oz I&O - last 24 hours: Intake & Output 07/15/16 07/16/16 07/16/16 22:59 06:59 14:59 Intake Total 175 240 Output Total 375 400 Balance -200 -160 Lab Results last 24 hrs: Laboratory Results - last 24 hr 07/15/16 07/16/16 07/16/16 Range/Units 17:28 04:55 04:55 WBC 5.10 (4.0-11.0) K/uL RBC 3.58 L (4.50-5.90) M/uL Hgb 10.0 L (13.0-17.0) g/dL Hct 31.5 L (38.0-50.0) % MCV 88.0 (80.0-98.0) fL MCH 27.9 (27.0-32.0) pg MCHC 31.7 (31.0-37.0) g/dL RDW Std Deviation 49.9 (28.0-62.0) fl RDW Coeff of Saran 15 (11.0-15.0) % Plt Count 176 (150-400) K/uL MPV 9.70 (7.40-12.00) fL Neut % (Auto) 63.6 (48.0-80.0) % Lymph % (Auto) 22.5 (16.0-40.0) % [place] % (Auto) 13.7 (0.0-15.0) % Eos % (Auto) 0.0 (0.0-7.0) % Baso % (Auto) 0.2 (0.0-1.5) % Neut # (Auto) 3.2 (1.4-5.7) K/uL Lymph # (Auto) 1.2 (0.6-2.4) K/uL [place] # (Auto) 0.7 (0.0-0.8) K/uL Eos # (Auto) 0.0 (0.0-0.7) K/uL Baso # (Auto) 0.0 (0.0-0.1) K/uL Nucleated RBC % 0.0 /100WBC Nucleated RBCs # 0 K/uL Sodium 141 (136-146) mmol/L Potassium 5.1 (3.5-5.1) mmol/L Chloride 99 (98-110) mmol/L Carbon Dioxide 36 H (21-31) mmol/L BUN 22 (6.0-23.0) mg/dL Creatinine 1.0 (0.6-1.5) mg/dL Est Cr Clr Drug Dosing 50.31 mL/min Estimated GFR (MDRD) > 60.0 ml/min Glucose 190 H (60-110) mg/dL POC Glucose 183 H (60-110) mg/dL Calcium 8.7 L (8.8-10.8) mg/dL 07/16/16 Range/Units 06:56 WBC (4.0-11.0) K/uL RBC (4.50-5.90) M/uL Hgb (13.0-17.0) g/dL Hct (38.0-50.0) % MCV (80.0-98.0) fL MCH (27.0-32.0) pg MCHC (31.0-37.0) g/dL RDW Std Deviation (28.0-62.0) fl RDW Coeff of [place] (11.0-15.0) % Plt Count (150-400) K/uL MPV (7.40-12.00) fL Neut % (Auto) (48.0-80.0) % Lymph % (Auto) (16.0-40.0) % [place] % (Auto) (0.0-15.0) % Eos % (Auto) (0.0-7.0) % Baso % (Auto) (0.0-1.5) % Neut # (Auto) (1.4-5.7) K/uL Lymph # (Auto) (0.6-2.4) K/uL [place] # (Auto) (0.0-0.8) K/uL Eos # (Auto) (0.0-0.7) K/uL Baso # (Auto) (0.0-0.1) K/uL Nucleated RBC % /100WBC Nucleated RBCs # K/uL Sodium (136-146) mmol/L Potassium (3.5-5.1) mmol/L Chloride (98-110) mmol/L Carbon Dioxide (21-31) mmol/L BUN (6.0-23.0) mg/dL Creatinine (0.6-1.5) mg/dL Est Cr Clr Drug Dosing mL/min Estimated GFR (MDRD) ml/min Glucose (60-110) mg/dL POC Glucose 132 H (60-110) mg/dL Calcium (8.8-10.8) mg/dL Med Orders - Current: Current Medications Albuterol (Proventil Neb Soln) 2.5 mg INH QID [facility] Last Admin: 07/16/16 11:08 Dose: 2.5 mg Carvedilol (Coreg) 12.5 mg PO BID [facility] Last Admin: 07/16/16 08:23 Dose: 12.5 mg Insulin Aspart (Novolog) 0 unit SUBCUT TIDAC [facility] PRN Reason: Protocol Last Admin: 07/16/16 11:57 Dose: 1 unit Morphine Sulfate (Morphine) 2 mg IVPUSH Q2H PRN PRN Reason: Pain (severe 7-10) Oxycodone HCl (Oxycodone) 5 mg PO Q4H PRN PRN Reason: Pain Fluticasone/Salmeterol (Advair Diskus 250-50) 1 puff INH BID [facility] Last Admin: 07/16/16 11:08 Dose: 1 inhalation Sotalol HCl (Betapace) 120 mg PO BID [facility] Last Admin: 07/16/16 08:23 Dose: 120 mg Tiotropium [place] (Spiriva Handihaler) 18 mcg INH DAILY [facility] Last Admin: 07/16/16 11:08 Dose: 1 cap Discontinued Medications Dextrose/Water (Dextrose 50% In Water) 50 ml IVPUSH ONETIME STA Stop: 07/15/16 06:17 Last Admin: 07/15/16 06:35 Dose: 50 ml Insulin Human Regular (Novolin R) 10 unit IVPUSH ONETIME STA PRN Reason: Protocol Stop: 07/15/16 06:18 Last Admin: 07/15/16 06:33 Dose: 10 units Lidocaine HCl (Xylocaine 1%) Confirm Administered Dose 20 ml .ROUTE .STK-MED ONE Stop: 07/15/16 00:08 Last Admin: 07/15/16 01:30 Dose: Not Given Lidocaine HCl (Xylocaine 1%) 20 ml INJECT ONETIME ONE Stop: 07/15/16 00:09 Last Admin: 07/15/16 01:32 Dose: Not Given Lidocaine/Epinephrine (Xylocaine 1% With Epinephrine 1:100,000) Confirm Administered Dose 20 ml .ROUTE .STK-MED ONE Stop: 07/15/16 00:40 Last Admin: 07/15/16 01:32 Dose: Not Given Lidocaine/Epinephrine (Xylocaine 1% With Epinephrine 1:100,000) 20 ml INJECT ONETIME ONE Stop: 07/15/16 00:43 Last Admin: 07/15/16 01:32 Dose: Not Given Lidocaine/Epinephrine (Xylocaine 1% With Epinephrine 1:100,000) 20 ml INJECT ONETIME ONE Stop: 07/15/16 00:06 Last Admin: 07/15/16 00:47 Dose: 20 ml Morphine Sulfate (Morphine) Confirm Administered Dose 10 mg .ROUTE [employer] [place]-MED ONE Stop: 07/15/16 00:39 Last Admin: 07/15/16 01:31 Dose: Not Given Morphine Sulfate (Morphine) 10 mg IVPUSH ONETIME ONE Stop: 07/15/16 00:44 Last Admin: 07/15/16 01:32 Dose: Not Given Morphine Sulfate (Morphine) 3 mg IVPUSH ONETIME ONE Stop: 07/15/16 01:24 Last Admin: 07/15/16 01:31 Dose: Not Given Morphine Sulfate (Morphine) 3 mg IVPUSH ONETIME ONE Stop: 07/15/16 00:41 Last Admin: 07/15/16 00:47 Dose: 3 mg Ondansetron HCl (Zofran) Confirm Administered Dose 4 mg .ROUTE .STK-MED ONE Stop: 07/15/16 00:40 Last Admin: 07/15/16 01:33 Dose: Not Given Ondansetron HCl (Zofran) 4 mg IVPUSH ONETIME ONE Stop: 07/15/16 00:44 Last Admin: 07/15/16 00:40 Dose: 4 mg Ondansetron HCl (Zofran) 4 mg IVPUSH ONETIME ONE Stop: 07/15/16 01:24 Last Admin: 07/15/16 01:32 Dose: Not Given - Exam Lungs: Clear to auscultation (B BS, wound drsg dry), Normal respiratory effort - Problem List Review Problem List Initiated/Reviewed/Updated: Yes - My Orders Last 24 Hours: Active Orders 24 hr Category Date Time Status Transfer Patient (Change bed) [ADT] Routine ADT 07/15/16 13:12 Ordered Telemetry Monitoring [Cardiac Monitoring] [RC] Q8H Care 07/15/16 13:13 Active CXR [Chest 1V Frontal] [CR] AM Exams 07/17/16 05:11 Ordered CXR [Chest 1V Frontal] [CR] AM Exams 07/18/16 05:11 Ordered Albuterol [Proventil Neb Soln] Med 07/16/16 12:00 Active 2.5 mg INH QID Fluticasone/Salmeterol [Advair Diskus 250-50] Med 07/16/16 10:15 Active 1 puff INH BID Tiotropium [Spiriva HandiHaler] Med 07/16/16 10:15 Active 18 mcg INH DAILY Code Status [Resuscitation Status] Routine Resus Stat 07/16/16 12:05 Ordered Medication Orders Albuterol (Proventil Neb Soln) 2.5 mg INH QID [facility] Last Admin: 07/16/16 11:08 Dose: 2.5 mg Carvedilol (Coreg) 12.5 mg PO BID [facility] Last Admin: 07/16/16 08:23 Dose: 12.5 mg Admin: 07/15/16 20:23 Dose: 12.5 mg Admin: 07/15/16 09:20 Dose: 12.5 mg Insulin Aspart (Novolog) 0 unit SUBCUT TIDAC [facility] PRN Reason: Protocol Last Admin: 07/16/16 11:57 Dose: 1 unit Admin: 07/16/16 07:13 Dose: Not Given Admin: 07/15/16 17:31 Dose: Not Given Admin: 07/15/16 13:42 Dose: Admin: 07/15/16 06:43 Dose: Not Given Morphine Sulfate (Morphine) 2 mg IVPUSH Q2H PRN PRN Reason: Pain (severe 7-10) Oxycodone HCl (Oxycodone) 5 mg PO Q4H PRN PRN Reason: Pain Fluticasone/Salmeterol (Advair Diskus 250-50) 1 puff INH BID [facility] Last Admin: 07/16/16 11:08 Dose: 1 inhalation Sotalol HCl (Betapace) 120 mg PO BID [facility] Last Admin: 07/16/16 08:23 Dose: 120 mg Admin: 07/15/16 20:25 Dose: 120 mg Admin: 07/15/16 09:20 Dose: 120 mg Tiotropium [place] (Spiriva Handihaler) 18 mcg INH DAILY [facility] Last Admin: 07/16/16 11:08 Dose: 1 cap - Assessment Assessment (Free Text/Narrative):: doing well; will continue 20 cm suction; likely water seal tomorrow afternoon, and pull tube the next morning - Plan Plan (Free Text/Narrative):: doing well; will continue 20 cm suction; likely water seal tomorrow afternoon, and pull tube the next morning
--- NOTE | 2016-07-16 16:45 | PCM.PN ---
- General Info Date of Service: 07/16/16 Admission Dx/Problem (Free Text): Tension Pneumothorax Subjective Update: Patient doing well. No overnight events Functional Status: Reports: pain controlled, tolerating diet, urinating - Review of Systems General: Reports: Weakness, Fatigue HEENT: Reports: no symptoms Pulmonary: Reports: shortness of breath Cardiovascular: Reports: No Symptoms Gastrointestinal: Reports: No symptoms Genitourinary: Reports: no symptoms Musculoskeletal: Reports: no symptoms Skin: Reports: no symptoms Neurological: Reports: No Symptoms Psychiatric: Reports: no symptoms - Patient Data Vitals - most recent: Last Vital Signs Temp 37.0 C 07/16/16 16:00 Pulse 70 07/16/16 16:00 Resp 22 H 07/16/16 16:00 BP 164/76 H 07/16/16 16:00 Pulse Ox 96 07/16/16 16:00 Weight - most recent: 49.2 kg I&O - last 24 hours: Intake & Output 07/16/16 07/16/16 07/16/16 06:59 14:59 22:59 Intake Total 240 500 Output Total 400 705 Balance -160 -205 Lab Results last 24 hrs: Laboratory Results - last 24 hr 07/15/16 07/16/16 07/16/16 Range/Units 17:28 04:55 04:55 WBC 5.10 (4.0-11.0) K/uL RBC 3.58 L (4.50-5.90) M/uL Hgb 10.0 L (13.0-17.0) g/dL Hct 31.5 L (38.0-50.0) % MCV 88.0 (80.0-98.0) fL MCH 27.9 (27.0-32.0) pg MCHC 31.7 (31.0-37.0) g/dL RDW Std Deviation 49.9 (28.0-62.0) fl RDW Coeff of Saran 15 (11.0-15.0) % Plt Count 176 (150-400) K/uL MPV 9.70 (7.40-12.00) fL Neut % (Auto) 63.6 (48.0-80.0) % Lymph % (Auto) 22.5 (16.0-40.0) % [place] % (Auto) 13.7 (0.0-15.0) % Eos % (Auto) 0.0 (0.0-7.0) % Baso % (Auto) 0.2 (0.0-1.5) % Neut # (Auto) 3.2 (1.4-5.7) K/uL Lymph # (Auto) 1.2 (0.6-2.4) K/uL [place] # (Auto) 0.7 (0.0-0.8) K/uL Eos # (Auto) 0.0 (0.0-0.7) K/uL Baso # (Auto) 0.0 (0.0-0.1) K/uL Nucleated RBC % 0.0 /100WBC Nucleated RBCs # 0 K/uL Sodium 141 (136-146) mmol/L Potassium 5.1 (3.5-5.1) mmol/L Chloride 99 (98-110) mmol/L Carbon Dioxide 36 H (21-31) mmol/L BUN 22 (6.0-23.0) mg/dL Creatinine 1.0 (0.6-1.5) mg/dL Est Cr Clr Drug Dosing 50.31 mL/min Estimated GFR (MDRD) > 60.0 ml/min Glucose 190 H (60-110) mg/dL POC Glucose 183 H (60-110) mg/dL Calcium 8.7 L (8.8-10.8) mg/dL 07/16/16 07/16/16 Range/Units 06:56 11:50 WBC (4.0-11.0) K/uL RBC (4.50-5.90) M/uL Hgb (13.0-17.0) g/dL Hct (38.0-50.0) % MCV (80.0-98.0) fL MCH (27.0-32.0) pg MCHC (31.0-37.0) g/dL RDW Std Deviation (28.0-62.0) fl RDW Coeff of [place] (11.0-15.0) % Plt Count (150-400) K/uL MPV (7.40-12.00) fL Neut % (Auto) (48.0-80.0) % Lymph % (Auto) (16.0-40.0) % [place] % (Auto) (0.0-15.0) % Eos % (Auto) (0.0-7.0) % Baso % (Auto) (0.0-1.5) % Neut # (Auto) (1.4-5.7) K/uL Lymph # (Auto) (0.6-2.4) K/uL [place] # (Auto) (0.0-0.8) K/uL Eos # (Auto) (0.0-0.7) K/uL Baso # (Auto) (0.0-0.1) K/uL Nucleated RBC % /100WBC Nucleated RBCs # K/uL Sodium (136-146) mmol/L Potassium (3.5-5.1) mmol/L Chloride (98-110) mmol/L Carbon Dioxide (21-31) mmol/L BUN (6.0-23.0) mg/dL Creatinine (0.6-1.5) mg/dL Est Cr Clr Drug Dosing mL/min Estimated GFR (MDRD) ml/min Glucose (60-110) mg/dL POC Glucose 132 H 151 H (60-110) mg/dL Calcium (8.8-10.8) mg/dL Med Orders - Current: Current Medications Albuterol (Proventil Neb Soln) 2.5 mg INH QID [facility] Last Admin: 07/16/16 11:08 Dose: 2.5 mg Carvedilol (Coreg) 12.5 mg PO BID [facility] Last Admin: 07/16/16 08:23 Dose: 12.5 mg Insulin Aspart (Novolog) 0 unit SUBCUT TIDAC [facility] PRN Reason: Protocol Last Admin: 07/16/16 11:57 Dose: 1 unit Morphine Sulfate (Morphine) 2 mg IVPUSH Q2H PRN PRN Reason: Pain (severe 7-10) Oxycodone HCl (Oxycodone) 5 mg PO Q4H PRN PRN Reason: Pain Fluticasone/Salmeterol (Advair Diskus 250-50) 1 puff INH BID [facility] Last Admin: 07/16/16 11:08 Dose: 1 inhalation Sotalol HCl (Betapace) 120 mg PO BID [facility] Last Admin: 07/16/16 08:23 Dose: 120 mg Tiotropium [place] (Spiriva Handihaler) 18 mcg INH DAILY [facility] Last Admin: 07/16/16 11:08 Dose: 1 cap Discontinued Medications Dextrose/Water (Dextrose 50% In Water) 50 ml IVPUSH ONETIME STA Stop: 07/15/16 06:17 Last Admin: 07/15/16 06:35 Dose: 50 ml Insulin Human Regular (Novolin R) 10 unit IVPUSH ONETIME STA PRN Reason: Protocol Stop: 07/15/16 06:18 Last Admin: 07/15/16 06:33 Dose: 10 units Lidocaine HCl (Xylocaine 1%) Confirm Administered Dose 20 ml .ROUTE .STK-MED ONE Stop: 07/15/16 00:08 Last Admin: 07/15/16 01:30 Dose: Not Given Lidocaine HCl (Xylocaine 1%) 20 ml INJECT ONETIME ONE Stop: 07/15/16 00:09 Last Admin: 07/15/16 01:32 Dose: Not Given Lidocaine/Epinephrine (Xylocaine 1% With Epinephrine 1:100,000) Confirm Administered Dose 20 ml .ROUTE .STK-MED ONE Stop: 07/15/16 00:40 Last Admin: 07/15/16 01:32 Dose: Not Given Lidocaine/Epinephrine (Xylocaine 1% With Epinephrine 1:100,000) 20 ml INJECT ONETIME ONE Stop: 07/15/16 00:43 Last Admin: 07/15/16 01:32 Dose: Not Given Lidocaine/Epinephrine (Xylocaine 1% With Epinephrine 1:100,000) 20 ml INJECT ONETIME ONE Stop: 07/15/16 00:06 Last Admin: 07/15/16 00:47 Dose: 20 ml Morphine Sulfate (Morphine) Confirm Administered Dose 10 mg .ROUTE .STK-MED ONE Stop: 07/15/16 00:39 Last Admin: 07/15/16 01:31 Dose: Not Given Morphine Sulfate (Morphine) 10 mg IVPUSH ONETIME ONE Stop: 07/15/16 00:44 Last Admin: 07/15/16 01:32 Dose: Not Given Morphine Sulfate (Morphine) 3 mg IVPUSH ONETIME ONE Stop: 07/15/16 01:24 Last Admin: 07/15/16 01:31 Dose: Not Given Morphine Sulfate (Morphine) 3 mg IVPUSH ONETIME ONE Stop: 07/15/16 00:41 Last Admin: 07/15/16 00:47 Dose: 3 mg Ondansetron HCl (Zofran) Confirm Administered Dose 4 mg .ROUTE .STK-MED ONE Stop: 07/15/16 00:40 Last Admin: 07/15/16 01:33 Dose: Not Given Ondansetron HCl (Zofran) 4 mg IVPUSH ONETIME ONE Stop: 07/15/16 00:44 Last Admin: 07/15/16 00:40 Dose: 4 mg Ondansetron HCl (Zofran) 4 mg IVPUSH ONETIME ONE Stop: 07/15/16 01:24 Last Admin: 07/15/16 01:32 Dose: Not Given - Exam General: alert, oriented HEENT: Pupils equal, Pupils reactive, EOMI Neck: supple, no JVD Lungs: Decreased breath sounds, Crackles, Wheezing Cardiovascular: Regular Rate, Regular Rhythm Extremities: no edema Skin: other (chest tube site clean without redness or drainage ) - Problem List Review Problem List Initiated/Reviewed/Updated: Yes - My Orders Last 24 Hours: My Active Orders 07/16/16 12:05 Code Status [Resuscitation Status] Routine - Plan Plan:: 71 yo male admitted with pneumothorax s/p chest tube placement day 2. Dr. Boo placed chest tube and is following patient. Continue management based on his recommendations. Anticipate pulling chest tube tomorrow. As per orders.
[2016-07-16] MEDS: oxyCODONE 5 MG Tab PO PRN (21:24)
[2016-07-17] MEDS: oxyCODONE 5 MG Tab PO PRN ×2 (02:15→22:37)
[2016-07-17] MEDS: Albuterol 0.083% 2.5 MG/3 ML Neb Soln INH SCH ×2 (05:10→11:26)
[2016-07-17 05:34] LABS: CHLORIDE,CL 99 mmol/L (98-110); SODIUM,NA 139 mmol/L (136-146)
[2016-07-17] MEDS: Insulin Aspart 100 Units/ML 3 ML Pen SUBCUT SCH ×3 (07:17→16:22)
[2016-07-17] MEDS: Sotalol 80 MG Tab PO SCH ×2 (08:21→20:05)
[2016-07-17] MEDS: Carvedilol 12.5 MG Tab PO SCH ×2 (08:22→20:05)
[2016-07-17] MEDS: Fluticasone/Salmeterol 250-50 MCG Inhalation Powder 14/Diskus INH SCH ×2 (09:00→20:22)
[2016-07-17] MEDS ORDERED: Sotalol 80 MG Tab PO ONE (09:00)
[2016-07-17] MEDS: Tiotropium Inhaler 18 MCG Inhalation Powder Cap Kit of 5 INH SCH (09:01)
--- NOTE | 2016-07-17 09:19 | CR ---
EXAMINATION: Portable chest radiograph. HISTORY: Left pneumothorax. FINDINGS: The trachea is midline. There is a left-sided ICD. There is a right-sided portacatheter noted. Chron ic interstitial prominence and hyperinflation. No pneumothorax noted with a left-sided chest tube in place. Osseous structures appear osteopenic. IMPRESSION: No pneumothorax noted.
--- NOTE | 2016-07-17 10:53 | PCM.SURGPN ---
- General Info Date of Service: 07/17/16 Functional Status: Reports: pain controlled - Review of Systems General: Reports: No Symptoms Cardiovascular: Reports: No Symptoms Gastrointestinal: Reports: No symptoms - Patient Data Vitals - most recent: Last Vital Signs Temp 98.9 F 07/17/16 08:00 Pulse 80 07/17/16 08:22 Resp 16 07/17/16 08:00 BP 185/88 H 07/17/16 08:22 Pulse Ox 95 07/17/16 08:00 Weight - most recent: 108 lb 0.424 oz I&O - last 24 hours: Intake & Output 07/16/16 07/17/16 07/17/16 22:59 06:59 14:59 Intake Total 500 240 Output Total 705 350 Balance -205 -110 Lab Results last 24 hrs: Laboratory Results - last 24 hr 07/16/16 07/16/16 07/16/16 Range/Units 06:56 11:50 16:58 WBC (4.0-11.0) K/uL RBC (4.50-5.90) M/uL Hgb (13.0-17.0) g/dL Hct (38.0-50.0) % MCV (80.0-98.0) fL MCH (27.0-32.0) pg MCHC (31.0-37.0) g/dL RDW Std Deviation (28.0-62.0) fl RDW Coeff of Saran (11.0-15.0) % Plt Count (150-400) K/uL MPV (7.40-12.00) fL Neut % (Auto) (48.0-80.0) % Lymph % (Auto) (16.0-40.0) % [place] % (Auto) (0.0-15.0) % Eos % (Auto) (0.0-7.0) % Baso % (Auto) (0.0-1.5) % Neut # (Auto) (1.4-5.7) K/uL Lymph # (Auto) (0.6-2.4) K/uL [place] # (Auto) (0.0-0.8) K/uL Eos # (Auto) (0.0-0.7) K/uL Baso # (Auto) (0.0-0.1) K/uL Nucleated RBC % /100WBC Nucleated RBCs # K/uL Sodium (136-146) mmol/L Potassium (3.5-5.1) mmol/L Chloride (98-110) mmol/L Carbon Dioxide (21-31) mmol/L BUN (6.0-23.0) mg/dL Creatinine (0.6-1.5) mg/dL Est Cr Clr Drug Dosing mL/min Estimated GFR (MDRD) ml/min Glucose (60-110) mg/dL POC Glucose 132 H 151 H 165 H (60-110) mg/dL Calcium (8.8-10.8) mg/dL 07/17/16 07/17/16 07/17/16 Range/Units 04:59 04:59 06:37 WBC 5.59 (4.0-11.0) K/uL RBC 3.65 L (4.50-5.90) M/uL Hgb 10.1 L (13.0-17.0) g/dL Hct 31.8 L (38.0-50.0) % MCV 87.1 (80.0-98.0) fL MCH 27.7 (27.0-32.0) pg MCHC 31.8 (31.0-37.0) g/dL RDW Std Deviation 50.0 (28.0-62.0) fl RDW Coeff of Sar[place] 15 (11.0-15.0) % Plt Count 157 (150-400) K/uL MPV 9.50 (7.40-12.00) fL Neut % (Auto) 64.9 (48.0-80.0) % Lymph % (Auto) 22.7 (16.0-40.0) % [place] % (Auto) 11.8 (0.0-15.0) % Eos % (Auto) 0.4 (0.0-7.0) % Baso % (Auto) 0.2 (0.0-1.5) % Neut # (Auto) 3.6 (1.4-5.7) K/uL Lymph # (Auto) 1.3 (0.6-2.4) K/uL [place] # (Auto) 0.7 (0.0-0.8) K/uL Eos # (Auto) 0.0 (0.0-0.7) K/uL Baso # (Auto) 0.0 (0.0-0.1) K/uL Nucleated RBC % 0.0 /100WBC Nucleated RBCs # 0 K/uL Sodium 139 (136-146) mmol/L Potassium 4.7 (3.5-5.1) mmol/L Chloride 99 (98-110) mmol/L Carbon Dioxide 34 H (21-31) mmol/L BUN 22 (6.0-23.0) mg/dL Creatinine 0.9 (0.6-1.5) mg/dL Est Cr Clr Drug Dosing 52.18 mL/min Estimated GFR (MDRD) > 60.0 ml/min Glucose 125 H (60-110) mg/dL POC Glucose 132 H (60-110) mg/dL Calcium 9.1 (8.8-10.8) mg/dL Med Orders - Current: Current Medications Albuterol (Proventil Neb Soln) 2.5 mg INH QID [facility] Last Admin: 07/17/16 05:10 Dose: 2.5 mg Carvedilol (Coreg) 12.5 mg PO BID [facility] Last Admin: 07/17/16 08:22 Dose: 12.5 mg Insulin Aspart (Novolog) 0 unit SUBCUT TIDAC [facility] PRN Reason: Protocol Last Admin: 07/17/16 07:17 Dose: Not Given Morphine Sulfate (Morphine) 2 mg IVPUSH Q2H PRN PRN Reason: Pain (severe 7-10) Oxycodone HCl (Oxycodone) 5 mg PO Q4H PRN PRN Reason: Pain Last Admin: 07/17/16 02:15 Dose: 5 mg Fluticasone/Salmeterol (Advair Diskus 250-50) 1 puff INH BID [facility] Last Admin: 07/17/16 09:00 Dose: 1 inhalation Sotalol HCl (Betapace) 120 mg PO BID [facility] Last Admin: 07/17/16 08:21 Dose: 120 mg Tiotropium [place] (Spiriva Handihaler) 18 mcg INH DAILY [facility] Last Admin: 07/17/16 09:01 Dose: 1 cap Discontinued Medications Dextrose/Water (Dextrose 50% In Water) 50 ml IVPUSH ONETIME STA Stop: 07/15/16 06:17 Last Admin: 07/15/16 06:35 Dose: 50 ml Insulin Human Regular (Novolin R) 10 unit IVPUSH ONETIME STA PRN Reason: Protocol Stop: 07/15/16 06:18 Last Admin: 07/15/16 06:33 Dose: 10 units Lidocaine HCl (Xylocaine 1%) Confirm Administered Dose 20 ml .ROUTE .STK-MED ONE Stop: 07/15/16 00:08 Last Admin: 07/15/16 01:30 Dose: Not Given Lidocaine HCl (Xylocaine 1%) 20 ml INJECT ONETIME ONE Stop: 07/15/16 00:09 Last Admin: 07/15/16 01:32 Dose: Not Given Lidocaine/Epinephrine (Xylocaine 1% With Epinephrine 1:100,000) Confirm Administered Dose 20 ml .ROUTE .STK-MED ONE Stop: 07/15/16 00:40 Last Admin: 07/15/16 01:32 Dose: Not Given Lidocaine/Epinephrine (Xylocaine 1% With Epinephrine 1:100,000) 20 ml INJECT ONETIME ONE Stop: 07/15/16 00:43 Last Admin: 07/15/16 01:32 Dose: Not Given Lidocaine/Epinephrine (Xylocaine 1% With Epinephrine 1:100,000) 20 ml INJECT ONETIME ONE Stop: 07/15/16 00:06 Last Admin: 07/15/16 00:47 Dose: 20 ml Morphine Sulfate (Morphine) Confirm Administered Dose 10 mg .ROUTE .STK-MED ONE Stop: 07/15/16 00:39 Last Admin: 07/15/16 01:31 Dose: Not Given Morphine Sulfate (Morphine) 10 mg IVPUSH ONETIME ONE Stop: 07/15/16 00:44 Last Admin: 07/15/16 01:32 Dose: Not Given Morphine Sulfate (Morphine) 3 mg IVPUSH ONETIME ONE Stop: 07/15/16 01:24 Last Admin: 07/15/16 01:31 Dose: Not Given Morphine Sulfate (Morphine) 3 mg IVPUSH ONETIME ONE Stop: 07/15/16 00:41 Last Admin: 07/15/16 00:47 Dose: 3 mg Ondansetron HCl (Zofran) Confirm Administered Dose 4 mg .ROUTE .STK-MED ONE Stop: 07/15/16 00:40 Last Admin: 07/15/16 01:33 Dose: Not Given Ondansetron HCl (Zofran) 4 mg IVPUSH ONETIME ONE Stop: 07/15/16 00:44 Last Admin: 07/15/16 00:40 Dose: 4 mg Ondansetron HCl (Zofran) 4 mg IVPUSH ONETIME ONE Stop: 07/15/16 01:24 Last Admin: 07/15/16 01:32 Dose: Not Given - Exam General: alert, oriented Lungs: Clear to auscultation, Normal respiratory effort Abdomen: bowel sounds present, soft, no tenderness, no distension (cxr > no ptx ; chest tube water bottle > no air leak) - Problem List Review Problem List Initiated/Reviewed/Updated: Yes - My Orders Last 24 Hours: Active Orders 24 hr Category Date Time Status Chest Tube Management [RC] ASDIRECTED Care 07/17/16 10:48 Ordered CXR [Chest 1V Frontal] [CR] AM Exams 07/18/16 05:11 Ordered Albuterol [Proventil Neb Soln] Med 07/16/16 12:00 Active 2.5 mg INH QID Fluticasone/Salmeterol [Advair Diskus 250-50] Med 07/16/16 10:15 Active 1 puff INH BID Tiotropium [Spiriva HandiHaler] Med 07/16/16 10:15 Active 18 mcg INH DAILY Code Status [Resuscitation Status] Routine Resus Stat 07/16/16 12:05 Ordered Medication Orders Albuterol (Proventil Neb Soln) 2.5 mg INH QID [facility] Last Admin: 07/17/16 05:10 Dose: 2.5 mg Admin: 07/16/16 23:38 Dose: 2.5 mg Admin: 07/16/16 17:10 Dose: 2.5 mg Admin: 07/16/16 11:08 Dose: 2.5 mg Carvedilol (Coreg) 12.5 mg PO BID [facility] Last Admin: 07/17/16 08:22 Dose: 12.5 mg Admin: 07/16/16 20:41 Dose: 12.5 mg Admin: 07/16/16 08:23 Dose: 12.5 mg Admin: 07/15/16 20:23 Dose: 12.5 mg Admin: 07/15/16 09:20 Dose: 12.5 mg Insulin Aspart (Novolog) 0 unit SUBCUT TIDAC [facility] PRN Reason: Protocol Last Admin: 07/17/16 07:17 Dose: Not Given Admin: 07/16/16 17:31 Dose: 1 unit Admin: 07/16/16 11:57 Dose: 1 unit Admin: 07/16/16 07:13 Dose: Not Given Admin: 07/15/16 17:31 Dose: Not Given Admin: 07/15/16 13:42 Dose: Admin: 07/15/16 06:43 Dose: Not Given Morphine Sulfate (Morphine) 2 mg IVPUSH Q2H PRN PRN Reason: Pain (severe 7-10) Oxycodone HCl (Oxycodone) 5 mg PO Q4H PRN PRN Reason: Pain Last Admin: 07/17/16 02:15 Dose: 5 mg Admin: 07/16/16 21:24 Dose: 5 mg Fluticasone/Salmeterol (Advair Diskus 250-50) 1 puff INH BID [facility] Last Admin: 07/17/16 09:00 Dose: 1 inhalation Admin: 07/16/16 20:06 Dose: 1 inhalation Admin: 07/16/16 11:08 Dose: 1 inhalation Sotalol HCl (Betapace) 120 mg PO BID [facility] Last Admin: 07/17/16 08:21 Dose: 120 mg Admin: 07/16/16 20:41 Dose: 120 mg Admin: 07/16/16 08:23 Dose: 120 mg Admin: 07/15/16 20:25 Dose: 120 mg Admin: 07/15/16 09:20 Dose: 120 mg Tiotropium [place] (Spiriva Handihaler) 18 mcg INH DAILY [facility] Last Admin: 07/17/16 09:01 Dose: 1 cap Admin: 07/16/16 11:08 Dose: 1 cap - Assessment Assessment (Free Text/Narrative):: doing well post chesttube placement; cxr, no ptx; chest tube, no air leak; put to water seal; repeat cxr in morning, if no ptx, pull chest tube, home - Plan Plan (Free Text/Narrative):: doing well post chesttube placement; cxr, no ptx; chest tube, no air leak; put to water seal; repeat cxr in morning, if no ptx, pull chest tube, home
[2016-07-17] MEDS ORDERED: Magnesium Hydroxide 400 MG/5 ML Susp 30 ML Cup PO PRN (17:03)
[2016-07-17] MEDS: Albuterol/Ipratropium 3.0-0.5 MG/3 ML Neb Soln NEB SCH ×2 (18:39→23:08)
--- NOTE | 2016-07-17 23:26 | PCM.PN ---
- General Info Date of Service: 07/17/16 Admission Dx/Problem (Free Text): Tension Pneumothorax Subjective Update: No overnight events. Patient has no complaints. Chest tube in place, suctioning has been turned off. Functional Status: Reports: pain controlled, tolerating diet, urinating - Review of Systems General: Reports: No Symptoms HEENT: Reports: no symptoms Pulmonary: Reports: no symptoms Cardiovascular: Reports: No Symptoms Gastrointestinal: Reports: No symptoms Genitourinary: Reports: no symptoms Musculoskeletal: Reports: no symptoms Skin: Reports: no symptoms Neurological: Reports: No Symptoms Psychiatric: Reports: no symptoms - Patient Data Vitals - most recent: Last Vital Signs Temp 37.3 C 07/17/16 20:00 Pulse 76 07/17/16 20:05 Resp 16 07/17/16 20:00 BP 139/66 07/17/16 20:05 Pulse Ox 96 07/17/16 20:00 Weight - most recent: 49 kg I&O - last 24 hours: Intake & Output 07/17/16 07/17/16 07/18/16 14:59 22:59 06:59 Intake Total 700 Output Total 650 Balance 50 Lab Results last 24 hrs: Laboratory Results - last 24 hr 07/17/16 07/17/16 07/17/16 Range/Units 04:59 04:59 06:37 WBC 5.59 (4.0-11.0) K/uL RBC 3.65 L (4.50-5.90) M/uL Hgb 10.1 L (13.0-17.0) g/dL Hct 31.8 L (38.0-50.0) % MCV 87.1 (80.0-98.0) fL MCH 27.7 (27.0-32.0) pg MCHC 31.8 (31.0-37.0) g/dL RDW Std Deviation 50.0 (28.0-62.0) fl RDW Coeff of Saran 15 (11.0-15.0) % Plt Count 157 (150-400) K/uL MPV 9.50 (7.40-12.00) fL Neut % (Auto) 64.9 (48.0-80.0) % Lymph % (Auto) 22.7 (16.0-40.0) % [place] % (Auto) 11.8 (0.0-15.0) % Eos % (Auto) 0.4 (0.0-7.0) % Baso % (Auto) 0.2 (0.0-1.5) % Neut # (Auto) 3.6 (1.4-5.7) K/uL Lymph # (Auto) 1.3 (0.6-2.4) K/uL [place] # (Auto) 0.7 (0.0-0.8) K/uL Eos # (Auto) 0.0 (0.0-0.7) K/uL Baso # (Auto) 0.0 (0.0-0.1) K/uL Nucleated RBC % 0.0 /100WBC Nucleated RBCs # 0 K/uL Sodium 139 (136-146) mmol/L Potassium 4.7 (3.5-5.1) mmol/L Chloride 99 (98-110) mmol/L Carbon Dioxide 34 H (21-31) mmol/L BUN 22 (6.0-23.0) mg/dL Creatinine 0.9 (0.6-1.5) mg/dL Est Cr Clr Drug Dosing 52.18 mL/min Estimated GFR (MDRD) > 60.0 ml/min Glucose 125 H (60-110) mg/dL POC Glucose 132 H (60-110) mg/dL Calcium 9.1 (8.8-10.8) mg/dL 07/17/16 07/17/16 Range/Units 11:15 16:18 WBC (4.0-11.0) K/uL RBC (4.50-5.90) M/uL Hgb (13.0-17.0) g/dL Hct (38.0-50.0) % MCV (80.0-98.0) fL MCH (27.0-32.0) pg MCHC (31.0-37.0) g/dL RDW Std Deviation (28.0-62.0) fl RDW Coeff of Saran (11.0-15.0) % Plt Count (150-400) K/uL MPV (7.40-12.00) fL Neut % (Auto) (48.0-80.0) % Lymph % (Auto) (16.0-40.0) % [place] % (Auto) (0.0-15.0) % Eos % (Auto) (0.0-7.0) % Baso % (Auto) (0.0-1.5) % Neut # (Auto) (1.4-5.7) K/uL Lymph # (Auto) (0.6-2.4) K/uL [place] # (Auto) (0.0-0.8) K/uL Eos # (Auto) (0.0-0.7) K/uL Baso # (Auto) (0.0-0.1) K/uL Nucleated RBC % /100WBC Nucleated RBCs # K/uL Sodium (136-146) mmol/L Potassium (3.5-5.1) mmol/L Chloride (98-110) mmol/L Carbon Dioxide (21-31) mmol/L BUN (6.0-23.0) mg/dL Creatinine (0.6-1.5) mg/dL Est Cr Clr Drug Dosing mL/min Estimated GFR (MDRD) ml/min Glucose (60-110) mg/dL POC Glucose 190 H 199 H (60-110) mg/dL Calcium (8.8-10.8) mg/dL Med Orders - Current: Current Medications Albuterol/Ipratropium (Duoneb 3.0-0.5 Mg/3 Ml) 3 ml NEB Q6HRRT [facility] Last Admin: 07/17/16 23:08 Dose: 3 ml Carvedilol (Coreg) 12.5 mg PO BID [facility] Last Admin: 07/17/16 20:05 Dose: 12.5 mg Insulin Aspart (Novolog) 0 unit SUBCUT TIDAC [facility] PRN Reason: Protocol Last Admin: 07/17/16 16:22 Dose: 1 unit Magnesium Hydroxide (Milk Of Magnesia) 30 ml PO DAILY PRN PRN Reason: Constipation Last Admin: 07/17/16 17:12 Dose: 30 ml Morphine Sulfate (Morphine) 2 mg IVPUSH Q2H PRN PRN Reason: Pain (severe 7-10) Oxycodone HCl (Oxycodone) 5 mg PO Q4H PRN PRN Reason: Pain Last Admin: 07/17/16 22:37 Dose: 5 mg Fluticasone/Salmeterol (Advair Diskus 250-50) 1 puff INH BID [facility] Last Admin: 07/17/16 20:22 Dose: 1 inhalation Sotalol HCl (Betapace) 120 mg PO BID [facility] Last Admin: 07/17/16 20:05 Dose: 120 mg Tiotropium [place] (Spiriva Handihaler) 18 mcg INH DAILY [facility] Last Admin: 07/17/16 09:01 Dose: 1 cap Discontinued Medications Albuterol (Proventil Neb Soln) 2.5 mg INH QID [facility] Last Admin: 07/17/16 11:26 Dose: 2.5 mg Dextrose/Water (Dextrose 50% In Water) 50 ml IVPUSH ONETIME STA Stop: 07/15/16 06:17 Last Admin: 07/15/16 06:35 Dose: 50 ml Insulin Human Regular (Novolin R) 10 unit IVPUSH ONETIME STA PRN Reason: Protocol Stop: 07/15/16 06:18 Last Admin: 07/15/16 06:33 Dose: 10 units Lidocaine HCl (Xylocaine 1%) Confirm Administered Dose 20 ml .ROUTE .STK-MED ONE Stop: 07/15/16 00:08 Last Admin: 07/15/16 01:30 Dose: Not Given Lidocaine HCl (Xylocaine 1%) 20 ml INJECT ONETIME ONE Stop: 07/15/16 00:09 Last Admin: 07/15/16 01:32 Dose: Not Given Lidocaine/Epinephrine (Xylocaine 1% With Epinephrine 1:100,000) Confirm Administered Dose 20 ml .ROUTE .STK-MED ONE Stop: 07/15/16 00:40 Last Admin: 07/15/16 01:32 Dose: Not Given Lidocaine/Epinephrine (Xylocaine 1% With Epinephrine 1:100,000) 20 ml INJECT ONETIME ONE Stop: 07/15/16 00:43 Last Admin: 07/15/16 01:32 Dose: Not Given Lidocaine/Epinephrine (Xylocaine 1% With Epinephrine 1:100,000) 20 ml INJECT ONETIME ONE Stop: 07/15/16 00:06 Last Admin: 07/15/16 00:47 Dose: 20 ml Morphine Sulfate (Morphine) Confirm Administered Dose 10 mg .ROUTE .STK-MED ONE Stop: 07/15/16 00:39 Last Admin: 07/15/16 01:31 Dose: Not Given Morphine Sulfate (Morphine) 10 mg IVPUSH ONETIME ONE Stop: 07/15/16 00:44 Last Admin: 07/15/16 01:32 Dose: Not Given Morphine Sulfate (Morphine) 3 mg IVPUSH ONETIME ONE Stop: 07/15/16 01:24 Last Admin: 07/15/16 01:31 Dose: Not Given Morphine Sulfate (Morphine) 3 mg IVPUSH ONETIME ONE Stop: 07/15/16 00:41 Last Admin: 07/15/16 00:47 Dose: 3 mg Ondansetron HCl (Zofran) Confirm Administered Dose 4 mg .ROUTE .STK-MED ONE Stop: 07/15/16 00:40 Last Admin: 07/15/16 01:33 Dose: Not Given Ondansetron HCl (Zofran) 4 mg IVPUSH ONETIME ONE Stop: 07/15/16 00:44 Last Admin: 07/15/16 00:40 Dose: 4 mg Ondansetron HCl (Zofran) 4 mg IVPUSH ONETIME ONE Stop: 07/15/16 01:24 Last Admin: 07/15/16 01:32 Dose: Not Given Sotalol HCl (Betapace) 120 mg PO .STK-MED ONE Stop: 07/15/16 09:01 Sotalol HCl (Betapace) 120 mg PO .STK-MED ONE Stop: 07/15/16 21:01 Sotalol HCl (Betapace) 120 mg PO .STK-MED ONE Stop: 07/16/16 09:01 Sotalol HCl (Betapace) 120 mg PO .STK-MED ONE Stop: 07/16/16 21:01 Sotalol HCl (Betapace) 120 mg PO .STK-MED ONE Stop: 07/17/16 09:01 - Exam Quality Assessment: supplemental oxygen General: alert, oriented, cooperative, no acute distress HEENT: Pupils equal, Pupils reactive, Mucous membr. moist/pink Neck: supple, no JVD Lungs: Normal respiratory effort, Decreased breath sounds, Crackles Cardiovascular: Regular Rate, Regular Rhythm Extremities: no edema, normal pulses Skin: intact Neurological: no new focal deficit - Problem List Review Problem List Initiated/Reviewed/Updated: Yes - Plan Plan:: Assessment: 71 yo male with history of DM, CHF, AF a, Esophogeal CA & COPD on Home O2 admitted with Left Tension Pneumothorax s/p chest tube placement day 3. Chest tube placed by Dr. Boo and he has been following the patient. Serial CXR's have been done every morning and have shown test tube in place with no acute abnormalities. Chest tube was switched from suctioning to seal this morning. All patients home medications continue except anticoagulants. Plan: 1. CXR [place] morning 2. If CXR normal then aticipate pulling chest tube 3. repeat morning labs 4. as per orders
[2016-07-18] MEDS: Albuterol/Ipratropium 3.0-0.5 MG/3 ML Neb Soln NEB SCH (05:19)
[2016-07-18 05:43] LABS: CHLORIDE,CL 99 mmol/L (98-110); SODIUM,NA 144 mmol/L (136-146)
[2016-07-18] MEDS: Insulin Aspart 100 Units/ML 3 ML Pen SUBCUT SCH (07:08)
[2016-07-18] MEDS: Sotalol 80 MG Tab PO SCH (08:37)
[2016-07-18 08:38] VITALS: BP 132/66
[2016-07-18] MEDS: Carvedilol 12.5 MG Tab PO SCH (08:38)
[2016-07-18] MEDS: Fluticasone/Salmeterol 250-50 MCG Inhalation Powder 14/Diskus INH SCH (09:05)
[2016-07-18] MEDS: Tiotropium Inhaler 18 MCG Inhalation Powder Cap Kit of 5 INH SCH (09:06)
--- NOTE | 2016-07-18 09:55 | PCM.SURGPN ---
- General Info Date of Service: 07/18/16 POD#: 3 Functional Status: Reports: pain controlled - Review of Systems General: Reports: No Symptoms Pulmonary: Reports: no symptoms Gastrointestinal: Reports: No symptoms (no bm yet; no co, breathing is good) - Patient Data Vitals - most recent: Last Vital Signs Temp 98.9 F 07/18/16 03:57 Pulse 77 07/18/16 08:38 Resp 16 07/18/16 03:57 BP 132/66 07/18/16 08:38 Pulse Ox 98 07/18/16 03:57 Weight - most recent: 105 lb 13.15 oz I&O - last 24 hours: Intake & Output 07/17/16 07/18/16 07/18/16 22:59 06:59 14:59 Intake Total 700 300 Output Total 650 225 Balance 50 75 Lab Results last 24 hrs: Laboratory Results - last 24 hr 07/17/16 07/17/16 07/18/16 Range/Units 11:15 16:18 04:38 WBC 4.52 (4.0-11.0) K/uL RBC 3.46 L (4.50-5.90) M/uL Hgb 9.7 L (13.0-17.0) g/dL Hct 30.2 L (38.0-50.0) % MCV 87.3 (80.0-98.0) fL MCH 28.0 (27.0-32.0) pg MCHC 32.1 (31.0-37.0) g/dL RDW Std Deviation 49.3 (28.0-62.0) fl RDW Coeff of Saran 15 (11.0-15.0) % Plt Count 159 (150-400) K/uL MPV 9.70 (7.40-12.00) fL Neut % (Auto) 64.4 (48.0-80.0) % Lymph % (Auto) 23.0 (16.0-40.0) % [place] % (Auto) 11.5 (0.0-15.0) % Eos % (Auto) 0.9 (0.0-7.0) % Baso % (Auto) 0.2 (0.0-1.5) % Neut # (Auto) 2.9 (1.4-5.7) K/uL Lymph # (Auto) 1.0 (0.6-2.4) K/uL [place] # (Auto) 0.5 (0.0-0.8) K/uL Eos # (Auto) 0.0 (0.0-0.7) K/uL Baso # (Auto) 0.0 (0.0-0.1) K/uL Nucleated RBC % 0.0 /100WBC Nucleated RBCs # 0 K/uL Sodium (136-146) mmol/L Potassium (3.5-5.1) mmol/L Chloride (98-110) mmol/L Carbon Dioxide (21-31) mmol/L BUN (6.0-23.0) mg/dL Creatinine (0.6-1.5) mg/dL Est Cr Clr Drug Dosing mL/min Estimated GFR (MDRD) ml/min Glucose (60-110) mg/dL POC Glucose 190 H 199 H (60-110) mg/dL Calcium (8.8-10.8) mg/dL 07/18/16 07/18/16 Range/Units 04:38 06:37 WBC (4.0-11.0) K/uL RBC (4.50-5.90) M/uL Hgb (13.0-17.0) g/dL Hct (38.0-50.0) % MCV (80.0-98.0) fL MCH (27.0-32.0) pg MCHC (31.0-37.0) g/dL RDW Std Deviation (28.0-62.0) fl RDW Coeff of Saran (11.0-15.0) % Plt Count (150-400) K/uL MPV (7.40-12.00) fL Neut % (Auto) (48.0-80.0) % Lymph % (Auto) (16.0-40.0) % [place] % (Auto) (0.0-15.0) % Eos % (Auto) (0.0-7.0) % Baso % (Auto) (0.0-1.5) % Neut # (Auto) (1.4-5.7) K/uL Lymph # (Auto) (0.6-2.4) K/uL [place] # (Auto) (0.0-0.8) K/uL Eos # (Auto) (0.0-0.7) K/uL Baso # (Auto) (0.0-0.1) K/uL Nucleated RBC % /100WBC Nucleated RBCs # K/uL Sodium 144 (136-146) mmol/L Potassium 4.5 (3.5-5.1) mmol/L Chloride 99 (98-110) mmol/L Carbon Dioxide 36 H (21-31) mmol/L BUN 24 H (6.0-23.0) mg/dL Creatinine 0.9 (0.6-1.5) mg/dL Est Cr Clr Drug Dosing 51.11 mL/min Estimated GFR (MDRD) > 60.0 ml/min Glucose 122 H (60-110) mg/dL POC Glucose 185 H (60-110) mg/dL Calcium 8.9 (8.8-10.8) mg/dL Med Orders - Current: Current Medications Albuterol/Ipratropium (Duoneb 3.0-0.5 Mg/3 Ml) 3 ml NEB Q6HRRT [facility] Last Admin: 07/18/16 05:19 Dose: 3 ml Carvedilol (Coreg) 12.5 mg PO BID [facility] Last Admin: 07/18/16 08:38 Dose: 12.5 mg Insulin Aspart (Novolog) 0 unit SUBCUT TIDAC [facility] PRN Reason: Protocol Last Admin: 07/18/16 07:08 Dose: 1 unit Magnesium Hydroxide (Milk Of Magnesia) 30 ml PO DAILY PRN PRN Reason: Constipation Last Admin: 07/17/16 17:12 Dose: 30 ml Morphine Sulfate (Morphine) 2 mg IVPUSH Q2H PRN PRN Reason: Pain (severe 7-10) Oxycodone HCl (Oxycodone) 5 mg PO Q4H PRN PRN Reason: Pain Last Admin: 07/17/16 22:37 Dose: 5 mg Fluticasone/Salmeterol (Advair Diskus 250-50) 1 puff INH BID [facility] Last Admin: 07/18/16 09:05 Dose: 1 inhalation Sotalol HCl (Betapace) 120 mg PO BID [facility] Last Admin: 07/18/16 08:37 Dose: 120 mg Tiotropium [place] (Spiriva Handihaler) 18 mcg INH DAILY [facility] Last Admin: 07/18/16 09:06 Dose: 1 cap Discontinued Medications Albuterol (Proventil Neb Soln) 2.5 mg INH QID [facility] Last Admin: 07/17/16 11:26 Dose: 2.5 mg Dextrose/Water (Dextrose 50% In Water) 50 ml IVPUSH ONETIME STA Stop: 07/15/16 06:17 Last Admin: 07/15/16 06:35 Dose: 50 ml Insulin Human Regular (Novolin R) 10 unit IVPUSH ONETIME STA PRN Reason: Protocol Stop: 07/15/16 06:18 Last Admin: 07/15/16 06:33 Dose: 10 units Lidocaine HCl (Xylocaine 1%) Confirm Administered Dose 20 ml .ROUTE .STK-MED ONE Stop: 07/15/16 00:08 Last Admin: 07/15/16 01:30 Dose: Not Given Lidocaine HCl (Xylocaine 1%) 20 ml INJECT ONETIME ONE Stop: 07/15/16 00:09 Last Admin: 07/15/16 01:32 Dose: Not Given Lidocaine/Epinephrine (Xylocaine 1% With Epinephrine 1:100,000) Confirm Administered Dose 20 ml .ROUTE .STK-MED ONE Stop: 07/15/16 00:40 Last Admin: 07/15/16 01:32 Dose: Not Given Lidocaine/Epinephrine (Xylocaine 1% With Epinephrine 1:100,000) 20 ml INJECT ONETIME ONE Stop: 07/15/16 00:43 Last Admin: 07/15/16 01:32 Dose: Not Given Lidocaine/Epinephrine (Xylocaine 1% With Epinephrine 1:100,000) 20 ml INJECT ONETIME ONE Stop: 07/15/16 00:06 Last Admin: 07/15/16 00:47 Dose: 20 ml Morphine Sulfate (Morphine) Confirm Administered Dose 10 mg .ROUTE .STK-MED ONE Stop: 07/15/16 00:39 Last Admin: 07/15/16 01:31 Dose: Not Given Morphine Sulfate (Morphine) 10 mg IVPUSH ONETIME ONE Stop: 07/15/16 00:44 Last Admin: 07/15/16 01:32 Dose: Not Given Morphine Sulfate (Morphine) 3 mg IVPUSH ONETIME ONE Stop: 07/15/16 01:24 Last Admin: 07/15/16 01:31 Dose: Not Given Morphine Sulfate (Morphine) 3 mg IVPUSH ONETIME ONE Stop: 07/15/16 00:41 Last Admin: 07/15/16 00:47 Dose: 3 mg Ondansetron HCl (Zofran) Confirm Administered Dose 4 mg .ROUTE .STK-MED ONE Stop: 07/15/16 00:40 Last Admin: 07/15/16 01:33 Dose: Not Given Ondansetron HCl (Zofran) 4 mg IVPUSH ONETIME ONE Stop: 07/15/16 00:44 Last Admin: 07/15/16 00:40 Dose: 4 mg Ondansetron HCl (Zofran) 4 mg IVPUSH ONETIME ONE Stop: 07/15/16 01:24 Last Admin: 07/15/16 01:32 Dose: Not Given Sotalol HCl (Betapace) 120 mg PO .STK-MED ONE Stop: 07/15/16 09:01 Sotalol HCl (Betapace) 120 mg PO .STK-MED ONE Stop: 07/15/16 21:01 Sotalol HCl (Betapace) 120 mg PO .STK-MED ONE Stop: 07/16/16 09:01 Sotalol HCl (Betapace) 120 mg PO .STK-MED ONE Stop: 07/16/16 21:01 Sotalol HCl (Betapace) 120 mg PO .STK-MED ONE Stop: 07/17/16 09:01 - Exam Wound/Incisions: healing well General: alert, oriented Lungs: Normal respiratory effort Cardiovascular: Regular Rate Abdomen: soft, no tenderness, no distension (cxr > no ptx) - Problem List Review Problem List Initiated/Reviewed/Updated: Yes - My Orders Last 24 Hours: Active Orders 24 hr Category Date Time Status Chest Tube Management [RC] ASDIRECTED Care 07/17/16 10:48 Active RT Aerosol Therapy [RC] ASDIRECTED Care 07/17/16 11:32 Active CXR [Chest 1V Frontal] [CR] AM Exams 07/18/16 05:11 Taken Albuterol/Ipratropium [DuoNeb 3.0-0.5 MG/3 ML] Med 07/17/16 18:00 Active 3 ml NEB Q6HRRT Magnesium Hydroxide [Milk of Magnesia] Med 07/17/16 17:03 Active 30 ml PO DAILY PRN Medication Orders Albuterol/Ipratropium (Duoneb 3.0-0.5 Mg/3 Ml) 3 ml NEB Q6HRRT [facility] Last Admin: 07/18/16 05:19 Dose: 3 ml Admin: 07/17/16 23:08 Dose: 3 ml Admin: 07/17/16 18:39 Dose: 3 ml Carvedilol (Coreg) 12.5 mg PO BID [facility] Last Admin: 07/18/16 08:38 Dose: 12.5 mg Admin: 07/17/16 20:05 Dose: 12.5 mg Admin: 07/17/16 08:22 Dose: 12.5 mg Admin: 07/16/16 20:41 Dose: 12.5 mg Admin: 07/16/16 08:23 Dose: 12.5 mg Admin: 07/15/16 20:23 Dose: 12.5 mg Admin: 07/15/16 09:20 Dose: 12.5 mg Insulin Aspart (Novolog) 0 unit SUBCUT TIDAC [facility] PRN Reason: Protocol Last Admin: 07/18/16 07:08 Dose: 1 unit Admin: 07/17/16 16:22 Dose: 1 unit Admin: 07/17/16 11:39 Dose: 1 unit Admin: 07/17/16 07:17 Dose: Not Given Admin: 07/16/16 17:31 Dose: 1 unit Admin: 07/16/16 11:57 Dose: 1 unit Admin: 07/16/16 07:13 Dose: Not Given Admin: 07/15/16 17:31 Dose: Not Given Admin: 07/15/16 13:42 Dose: Admin: 07/15/16 06:43 Dose: Not Given Magnesium Hydroxide (Milk Of Magnesia) 30 ml PO DAILY PRN PRN Reason: Constipation Last Admin: 07/17/16 17:12 Dose: 30 ml Morphine Sulfate (Morphine) 2 mg IVPUSH Q2H PRN PRN Reason: Pain (severe 7-10) Oxycodone HCl (Oxycodone) 5 mg PO Q4H PRN PRN Reason: Pain Last Admin: 07/17/16 22:37 Dose: 5 mg Admin: 07/17/16 02:15 Dose: 5 mg Admin: 07/16/16 21:24 Dose: 5 mg Fluticasone/Salmeterol (Advair Diskus 250-50) 1 puff INH BID [facility] Last Admin: 07/18/16 09:05 Dose: 1 inhalation Admin: 07/17/16 20:22 Dose: 1 inhalation Admin: 07/17/16 09:00 Dose: 1 inhalation Admin: 07/16/16 20:06 Dose: 1 inhalation Admin: 07/16/16 11:08 Dose: 1 inhalation Sotalol HCl (Betapace) 120 mg PO BID [facility] Last Admin: 07/18/16 08:37 Dose: 120 mg Admin: 07/17/16 20:05 Dose: 120 mg Admin: 07/17/16 08:21 Dose: 120 mg Admin: 07/16/16 20:41 Dose: 120 mg Admin: 07/16/16 08:23 Dose: 120 mg Admin: 07/15/16 20:25 Dose: 120 mg Admin: 07/15/16 09:20 Dose: 120 mg Tiotropium [place] (Spiriva Handihaler) 18 mcg INH DAILY [facility] Last Admin: 07/18/16 09:06 Dose: 1 cap Admin: 07/17/16 09:01 Dose: 1 cap Admin: 07/16/16 11:08 Dose: 1 cap - Assessment Assessment (Free Text/Narrative):: doing well; water seal X 24 hr; no co/sob/chest pain/n/v/f/c; chest dc ed; pt is good to dc home from surg standpoint; pt has been told to seek medical attention when SOB/chest pain/n/v; fu with local provider for wound check is fine; fu w me coming friday; pain meds as need; regular diet; no lifting > 10 lb X 2 wks; stop smoking, at risk for recurrency - Plan Plan (Free Text/Narrative):: doing well; water seal X 24 hr; no co/sob/chest pain/n/v/f/c; chest dc ed; pt is good to dc home from surg standpoint; pt has been told to seek medical attention when SOB/chest pain/n/v; fu with local provider for wound check is fine; fu w me coming friday afternoon; pain meds as need; regular diet; no lifting > 10 lb X 2 wks; stop smoking, at risk for recurrency
--- NOTE | 2016-07-18 10:15 | PCM.DCSUM1 ---
Discharge Summary - Hospital Course Free Text/Narrative:: 71 yo male with history of DM, COPD on Home O2, CHF, AF & Esophageal Ca was admitted 07/15/16 for Left sided Tension Pneumothorax. Dr. Boo from surgery was consulted and placed chest tube. He had history of AF for which he was on Pradaxa and Aspirin. Both medications were stopped for the chest tube. He had daily CXR's done which showed no acute changes. Chest tube suctioning was switched to water seal on 07/17/16. After 24 hours of water seal repeat CXR showed no acute changes. Chest tube was then pulled by Dr. Boo. Patient did well. He was cleared by Dr. Boo from surgical standpoint. He will be following- up with Dr. Boo on 07/22/16. He will also be set up to follow-up with PCP for wound check. Patient was discharged under care of his on 07/18/16. - Discharge Data Discharge Date: 07/18/16 Discharge Disposition: Home, Self-Care 01 Condition: Fair - Patient Summary/Data Operative Procedure(s) Performed: Chest Tube placement Consults: Dr. Boo, general surgery - Patient Instructions Diet: Usual Diet as Tolerated Activity: No Lifting Over 10 Pounds Wound/Incision, Other: f/u with pcp for wound care Notify Provider of: Fever, Increased Pain, Swelling and Redness, Drainage, Nausea and/or Vomiting Other/Special Instructions: -seek medical attention when SOB/chest pain/n/v;. - fu with local provider for wound check is fine;. -fu with Dr. Boo 07/22/16. - pain meds as need. -regular diet. -no lifting > 10 lb X 2 wks. -stop smoking. -at risk for recurrency - Discharge Plan Prescriptions/Med Rec: Bisacodyl [Dulcolax] 10 mg RECTAL ONETIME #1 supp Home Medications: Home Meds Albuterol Sulfate 2.5 mg IH QID 07/15/16 [History] Apixaban [Eliquis] 2.5 mg PO Q12HR 07/15/16 [History] Carvedilol [Coreg] 12.5 mg PO BID 07/15/16 [History] Cefdinir [Omnicef] 300 mg PO BID 07/15/16 [History] Fluticasone/Salmeterol [Advair 250-50 Diskus] 1 each IH BID 07/15/16 [History] Megestrol Acetate [Megace] 400 mg PO DAILY 07/15/16 [History] Sotalol HCl [Sotalol] 1 tab PO BID 07/15/16 [History] Tiotropium [Spiriva HandiHaler] 18 mcg INH ONETIME 07/15/16 [History] Bisacodyl [Dulcolax] 10 mg RECTAL ONETIME #1 supp 07/18/16 [Rx] Patient Handouts: Pneumothorax, Thoracotomy, Care After, [id number] Referrals: Sunny Boo MD [Physician] - 07/22/16 12:30 pm - Discharge Summary/Plan Comment DC Time >30 min.: No - Patient Data Vitals - Most Recent: Last Vital Signs Temp 37.2 C 07/18/16 03:57 Pulse 77 07/18/16 08:38 Resp 16 07/18/16 03:57 BP 132/66 07/18/16 08:38 Pulse Ox 98 07/18/16 03:57 Weight - Most Recent: 48 kg I&O - Last 24 hours: Intake & Output 07/17/16 07/18/16 07/18/16 22:59 06:59 14:59 Intake Total 700 300 Output Total 650 225 Balance 50 75 Lab Results - Last 24 hrs: Laboratory Results - last 24 hr 07/17/16 07/17/16 07/18/16 Range/Units 11:15 16:18 04:38 WBC 4.52 (4.0-11.0) K/uL RBC 3.46 L (4.50-5.90) M/uL Hgb 9.7 L (13.0-17.0) g/dL Hct 30.2 L (38.0-50.0) % MCV 87.3 (80.0-98.0) fL MCH 28.0 (27.0-32.0) pg MCHC 32.1 (31.0-37.0) g/dL RDW Std Deviation 49.3 (28.0-62.0) fl RDW Coeff of Sar[place] 15 (11.0-15.0) % Plt Count 159 (150-400) K/uL MPV 9.70 (7.40-12.00) fL Neut % (Auto) 64.4 (48.0-80.0) % Lymph % (Auto) 23.0 (16.0-40.0) % [place] % (Auto) 11.5 (0.0-15.0) % Eos % (Auto) 0.9 (0.0-7.0) % Baso % (Auto) 0.2 (0.0-1.5) % Neut # (Auto) 2.9 (1.4-5.7) K/uL Lymph # (Auto) 1.0 (0.6-2.4) K/uL [place] # (Auto) 0.5 (0.0-0.8) K/uL Eos # (Auto) 0.0 (0.0-0.7) K/uL Baso # (Auto) 0.0 (0.0-0.1) K/uL Nucleated RBC % 0.0 /100WBC Nucleated RBCs # 0 K/uL Sodium (136-146) mmol/L Potassium (3.5-5.1) mmol/L Chloride (98-110) mmol/L Carbon Dioxide (21-31) mmol/L BUN (6.0-23.0) mg/dL Creatinine (0.6-1.5) mg/dL Est Cr Clr Drug Dosing mL/min Estimated GFR (MDRD) ml/min Glucose (60-110) mg/dL POC Glucose 190 H 199 H (60-110) mg/dL Calcium (8.8-10.8) mg/dL 07/18/16 07/18/16 Range/Units 04:38 06:37 WBC (4.0-11.0) K/uL RBC (4.50-5.90) M/uL Hgb (13.0-17.0) g/dL Hct (38.0-50.0) % MCV (80.0-98.0) fL MCH (27.0-32.0) pg MCHC (31.0-37.0) g/dL RDW Std Deviation (28.0-62.0) fl RDW Coeff of [place] (11.0-15.0) % Plt Count (150-400) K/uL MPV (7.40-12.00) fL Neut % (Auto) (48.0-80.0) % Lymph % (Auto) (16.0-40.0) % [place] % (Auto) (0.0-15.0) % Eos % (Auto) (0.0-7.0) % Baso % (Auto) (0.0-1.5) % Neut # (Auto) (1.4-5.7) K/uL Lymph # (Auto) (0.6-2.4) K/uL [place] # (Auto) (0.0-0.8) K/uL Eos # (Auto) (0.0-0.7) K/uL Baso # (Auto) (0.0-0.1) K/uL Nucleated RBC % /100WBC Nucleated RBCs # K/uL Sodium 144 (136-146) mmol/L Potassium 4.5 (3.5-5.1) mmol/L Chloride 99 (98-110) mmol/L Carbon Dioxide 36 H (21-31) mmol/L BUN 24 H (6.0-23.0) mg/dL Creatinine 0.9 (0.6-1.5) mg/dL Est Cr Clr Drug Dosing 51.11 mL/min Estimated GFR (MDRD) > 60.0 ml/min Glucose 122 H (60-110) mg/dL POC Glucose 185 H (60-110) mg/dL Calcium 8.9 (8.8-10.8) mg/dL Med Orders - Current: Current Medications Albuterol/Ipratropium (Duoneb 3.0-0.5 Mg/3 Ml) 3 ml NEB Q6HRRT [facility] Last Admin: 07/18/16 05:19 Dose: 3 ml Carvedilol (Coreg) 12.5 mg PO BID [facility] Last Admin: 07/18/16 08:38 Dose: 12.5 mg Insulin Aspart (Novolog) 0 unit SUBCUT TIDAC [facility] PRN Reason: Protocol Last Admin: 07/18/16 07:08 Dose: 1 unit Magnesium Hydroxide (Milk Of Magnesia) 30 ml PO DAILY PRN PRN Reason: Constipation Last Admin: 07/17/16 17:12 Dose: 30 ml Morphine Sulfate (Morphine) 2 mg IVPUSH Q2H PRN PRN Reason: Pain (severe 7-10) Oxycodone HCl (Oxycodone) 5 mg PO Q4H PRN PRN Reason: Pain Last Admin: 07/17/16 22:37 Dose: 5 mg Fluticasone/Salmeterol (Advair Diskus 250-50) 1 puff INH BID [facility] Last Admin: 07/18/16 09:05 Dose: 1 inhalation Sotalol HCl (Betapace) 120 mg PO BID [facility] Last Admin: 07/18/16 08:37 Dose: 120 mg Tiotropium [place] (Spiriva Handihaler) 18 mcg INH DAILY [facility] Last Admin: 07/18/16 09:06 Dose: 1 cap Discontinued Medications Albuterol (Proventil Neb Soln) 2.5 mg INH QID [facility] Last Admin: 07/17/16 11:26 Dose: 2.5 mg Dextrose/Water (Dextrose 50% In Water) 50 ml IVPUSH ONETIME STA Stop: 07/15/16 06:17 Last Admin: 07/15/16 06:35 Dose: 50 ml Insulin Human Regular (Novolin R) 10 unit IVPUSH ONETIME STA PRN Reason: Protocol Stop: 07/15/16 06:18 Last Admin: 07/15/16 06:33 Dose: 10 units Lidocaine HCl (Xylocaine 1%) Confirm Administered Dose 20 ml .ROUTE .STK-MED ONE Stop: 07/15/16 00:08 Last Admin: 07/15/16 01:30 Dose: Not Given Lidocaine HCl (Xylocaine 1%) 20 ml INJECT ONETIME ONE Stop: 07/15/16 00:09 Last Admin: 07/15/16 01:32 Dose: Not Given Lidocaine/Epinephrine (Xylocaine 1% With Epinephrine 1:100,000) Confirm Administered Dose 20 ml .ROUTE .STK-MED ONE Stop: 07/15/16 00:40 Last Admin: 07/15/16 01:32 Dose: Not Given Lidocaine/Epinephrine (Xylocaine 1% With Epinephrine 1:100,000) 20 ml INJECT ONETIME ONE Stop: 07/15/16 00:43 Last Admin: 07/15/16 01:32 Dose: Not Given Lidocaine/Epinephrine (Xylocaine 1% With Epinephrine 1:100,000) 20 ml INJECT ONETIME ONE Stop: 07/15/16 00:06 Last Admin: 07/15/16 00:47 Dose: 20 ml Morphine Sulfate (Morphine) Confirm Administered Dose 10 mg .ROUTE .STK-MED ONE Stop: 07/15/16 00:39 Last Admin: 07/15/16 01:31 Dose: Not Given Morphine Sulfate (Morphine) 10 mg IVPUSH ONETIME ONE Stop: 07/15/16 00:44 Last Admin: 07/15/16 01:32 Dose: Not Given Morphine Sulfate (Morphine) 3 mg IVPUSH ONETIME ONE Stop: 07/15/16 01:24 Last Admin: 07/15/16 01:31 Dose: Not Given Morphine Sulfate (Morphine) 3 mg IVPUSH ONETIME ONE Stop: 07/15/16 00:41 Last Admin: 07/15/16 00:47 Dose: 3 mg Ondansetron HCl (Zofran) Confirm Administered Dose 4 mg .ROUTE .STK-MED ONE Stop: 07/15/16 00:40 Last Admin: 07/15/16 01:33 Dose: Not Given Ondansetron HCl (Zofran) 4 mg IVPUSH ONETIME ONE Stop: 07/15/16 00:44 Last Admin: 07/15/16 00:40 Dose: 4 mg Ondansetron HCl (Zofran) 4 mg IVPUSH ONETIME ONE Stop: 07/15/16 01:24 Last Admin: 07/15/16 01:32 Dose: Not Given Sotalol HCl (Betapace) 120 mg PO .STK-MED ONE Stop: 07/15/16 09:01 Sotalol HCl (Betapace) 120 mg PO .STK-MED ONE Stop: 07/15/16 21:01 Sotalol HCl (Betapace) 120 mg PO .STK-MED ONE Stop: 07/16/16 09:01 Sotalol HCl (Betapace) 120 mg PO .STK-MED ONE Stop: 07/16/16 21:01 Sotalol HCl (Betapace) 120 mg PO .STK-MED ONE Stop: 07/17/16 09:01 *Q Meaningful Use (DIS) - VTE *Q VTE Criteria *Q: - Stroke *Q Stroke Criteria *Q: - AMI *Q AMI Criteria *Q:
--- NOTE | 2016-07-18 13:29 | CR ---
EXAM DATE: 07/15/16 PATIENT'S AGE: 71 Patient: JYOTI ONEAL Facility: [place], [place] Site . Site : 1945 Study: XRay Chest [id number]/11/2017 6:52:09 AM Ordering Physician: Jl Rose Final Report: HISTORY: Follow up left pneumothorax. FINDINGS: AP portable chest radiograph is compared with 15 Jul 2016 and 17 Jul 2016. Right- sided Port-A-Cath is in place. Left subclavian ICD implant present with a single intact lead. A chest tube is seen in the left mid lung. Cardiac silhouette is stable size. There is blunting of the left lateral costophrenic angle. No pneumothorax. There is patchy density seen in the right lower lung field. IMPRESSION: 1. Left-sided chest tube without pneumothorax. There is trace left pleural effusion. 2. Stable right lower lobe infiltrate. Dictated by Laura Gutierrez MD @ 07/18/2016 6:56:39 AM Dictated by: Laura Gutierrez MD @ 07/18/2016 06:56:44 (Electronic Signature) Report Signed by Proxy. [facility]
== END 2016-07-18 11:53 | disposition home or self-care (01) | DRG 200 ==
LOC: MW.ED 00:03 → MW.ICU 01:10 → MW.MS 17:48
PROVIDERS: ADMIT Internal Medicine; ATTEND Internal Medicine
PROC: 0W9B00Z Drainage of Left Pleural Cavity with Drainage Device, Open Approach (ICD-10-PCS; principal; 2016-07-15)
DX: J93.9 Pneumothorax, unspecified (principal); J93.0 Spontaneous tension pneumothorax; I50.30 Unspecified diastolic (congestive) heart failure; R09.02 Hypoxemia; E11.9 Type 2 diabetes mellitus without complications; I25.10 Atherosclerotic heart disease of native coronary artery without angina pectoris; J44.9 Chronic obstructive pulmonary disease, unspecified; I10 Essential (primary) hypertension; I48.91 Unspecified atrial fibrillation; E78.00 Pure hypercholesterolemia, unspecified; F17.200 Nicotine dependence, unspecified, uncomplicated; Z85.01 Personal history of malignant neoplasm of esophagus; Z79.01 Long term (current) use of anticoagulants; Z79.82 Long term (current) use of aspirin; Z79.899 Other long term (current) drug therapy; Z95.0 Presence of cardiac pacemaker; Z99.81 Dependence on supplemental oxygen
CPT/HCPCS: 36415; 71010 ×2; 80053; 82962; 84484; 85025; 86850; 86900; 86901; 96374; 96375; 99285; J2270; J2405; 80048; 94640; 94664; 99291; 99292; A9270-GY; J1815-GY; J7060

== ENCOUNTER → 2016-07-22 | Outpatient (CLI) | payer MEDICARE, OTHER | LOC: MW.CHGS 08:00 | PROVIDERS: ATTEND Surgery | DX: J93.9 Pneumothorax, unspecified (principal) | CPT/HCPCS: G0463 ==